=== PATIENT | female | born 1945 | race Caucasian/White ===

== ENCOUNTER 2019-01-06 09:16 | Observation (INO) | payer OTHER ==
--- OUTSIDE RECORDS SUMMARY | 2019-01-06 09:17 | XMS REPORT | Clinical Summary ---
:1945 Author Organization [facility] Address [address] [place] [address] Care Team Providers Name Role Phone Margaret Mcnamara Primary Care Provider Allergies No Known Allergies Medications Medication Sig Dispensed Refills Start Date End Date Status valsartan-hydrochlorot Take 1 tablet 90 tablet 3 03/21/2016 Active hiazide (DIOVAN-HCT) by mouth 320-25 mg per daily. tabletIndications: Essential hypertension letrozole (FEMARA) 2.5 Take by mouth 0 Active mg chemo tablet daily. montelukast sodium Take by mouth. 0 Active (MONTELUKAST ORAL) rivaroxaban (XARELTO) Take 10 mg by 0 Active 10 mg tablet mouth daily. metoprolol tartrate Take 25 mg by 0 Active (LOPRESSOR) 25 mg mouth 2 (two) tablet times a day. acetaminophen Insert 650 mg 0 Active (TYLENOL) 650 MG into the suppository rectum every 4 (four) hours as needed for mild pain. mirabegron (MYRBETRIQ) Take 50 mg by 0 Active 50 mg tablet extended mouth daily. release 24 hr ergocalciferol, Take by mouth. 0 Active vitamin D2, (ERGOCAL ORAL) cholecalciferol, Take by mouth. 0 Active vitamin D3, (VITAMIN D3) 5,000 unit tablet coenzyme Q10 200 mg Take 200 mg by 0 Active capsule mouth daily. magnesium oxide Take 400 mg by 0 Active (MAG-OX) 400 mg (241.3 mouth daily. mg magnesium) tablet rysw-kmyn-cgg-yuc-adrian- Take by mouth. 0 Active sona-hor [id number] mg tablet CANNABIDIOL, CBD, Take by mouth. 0 Active EXTRACT ORAL metoprolol tartrate Take 1 tablet 180 tablet 0 04/11/2017 04/11/2018 (LOPRESSOR) 25 mg (25 mg total) tablet by mouth 2 (two) times a day. Active Problems Problem Noted Date History of pulmonary embolus (PE) 09/18/2018 Chest pain 09/18/2018 Encounters Date Type Specialty Care Team Description 09/18/2018 Office Visit Cardiology Kirill Winston MD Chest pain, unspecified type (Primary Dx); History of pulmonary embolus (PE) after 01/05/2018 Family History Medical History Relation Name Comments Cancer Father Hyperlipidemia Mother Stroke Mother Relation Name Status Comments Father Mother Social History Tobacco Use Types Packs/Day Years Used Date Former Smoker Smokeless Tobacco: Never Used Comments: 40yrs ago Alcohol Use Drinks/Week oz/Week Comments No Alcohol Habits Answer Date Recorded How often do you have a drink containing alcohol? Never 09/18/2018 How many drinks containing alcohol do you have on a typical Not asked day when you are drinking? How often do you have six or more drinks on one occasion? Not asked Sex Assigned at Date Recorded Not on file Job Start Date Occupation Industry Not on file Not on file Not on file Travel History Travel Start Travel End No recent travel history available. Last Filed Vital Signs Vital Sign Reading Time Taken Comments Blood Pressure 149/67 09/18/2018 1:27 PM CDT Pulse 82 09/18/2018 1:27 PM CDT Temperature - - Respiratory Rate - - Oxygen Saturation - - Inhaled Oxygen Concentration - - Weight 144 kg (318 lb) 09/18/2018 1:27 PM CDT Height 165.1 cm (5' 5") 09/18/2018 1:27 PM CDT Body Mass Index 52.92 09/18/2018 1:27 PM CDT Plan of Treatment Date Type Specialty Care Team Description 03/19/2019 Office Visit Cardiology Kirill Winston MD [address] [address] Health Maintenance Due Date Last Done Comments BREAST CANCER SCREENING 02/10/1996 COLONOSCOPY SCREENING 02/10/1996 SHINGLES VACCINES (#1) 02/10/1996 65+ PNEUMOCOCCAL VACCINE (1 of 2 - PCV13) 2011 INFLUENZA VACCINE 12/06/2018 Procedures Procedure Name Priority Date/Time Associated Diagnosis Comments ECG 12-LEAD Routine 09/18/2018 12:17 PM Chest pain, Results for this CDT unspecified type procedure are in the results section. after 01/05/2018 Results ECG 12 lead (09/18/2018 12:17 PM CDT) Ventricular rate 80 [facility] Atrial rate 80 [facility] NV interval 176 [facility] QRSD interval 92 [facility] QT interval 406 [facility] QTC interval 468 [facility] P axis 1 53 [facility] QRS axis 1 -3 [facility] T wave axis 61 [facility] EKG impression Normal sinus [facility] rhythm-Normal ECG-In automated comparison with ECG of 18-SEP-2018 12:17,-No significant change was found- Specimen Narrative Performed At Performing Organization Address City/State/Zipcode Phone Number [facility] [address] [place] [address] after 01/05/2018 Insurance Payer Benefit Plan / Subscriber ID Effective Dates Phone Address Type Group HUMANA MEDICARE HUMANA MEDICARE xxxxxxxxx 2018-Present PPO PPO/PFFS/ERS [facility] Advance Directives For more information, please contact: [phone] Type Date Recorded Patient 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
--- OUTSIDE RECORDS SUMMARY | 2019-01-06 09:18 | XMS REPORT | Clinical Summary ---
:1945 Author Organization [facility] Address [address] [place] [address] Care Team Providers Name Role Phone Bladimir Mcnamara Primary Care Provider Allergies Active Allergy Reactions Severity Noted Date Comments Medical Supply, Miscellaneous Rash Low 01/07/2016 Medications Medication Sig Dispensed Refills Start Date End Date Status metoprolol (LOPRESSOR) Take 50 mg by 0 Active 50 MG tablet mouth 2 (two) times daily. VALSARTAN (DIOVAN ORAL) Take by mouth. 0 Active RIVAROXABAN (XARELTO Take by mouth. 0 Active ORAL) omeprazole (PRILOSEC) 40 Take 40 mg by 0 Active MG capsule mouth 2 (two) times daily. CHOLECALCIFEROL, VITAMIN Take by mouth. 0 Active D3, (VITAMIN D3 ORAL) UBIDECARENONE (CO Q-10 Take by mouth 0 Active ORAL) daily . montelukast (SINGULAIR) Take 10 mg by 0 Active 10 mg tablet mouth nightly. Active Problems Problem Noted Date Invasive ductal carcinoma of breast, left 01/15/2016 Encounters Date Type Specialty Care Team Description 07/18/2018 Procedure visit Radiation Oncology Alexei Robbins MD 01/17/2018 Procedure visit Radiation Oncology Nii Hoffman MD after 01/05/2018 Social History Tobacco Use Types Packs/Day Years Used Date Former Smoker Smokeless Tobacco: Never Used Comments: quit smoking 25 yrs ago Alcohol Use Drinks/Week oz/Week Comments Yes occasionally Sex Assigned at Date Recorded Not on file Job Start Date Occupation Industry Not on file Not on file Not on file Travel History Travel Start Travel End No recent travel history available. Last Filed Vital Signs Not on file Plan of Treatment Not on file Results Not on fileafter 01/05/2018 Insurance Payer Benefit Plan / Group Subscriber ID Type Phone Address HUMANA - MEDICARE MGD HUMANA MEDICARE ADV xxxxxxxxx Maps Contracted CARE (Home) [place] [address] Advance Directives For more information, please contact:[address] [phone] Code Status Date Activated Date Inactivated Comments Full Code 01/15/2016 11:50 AM 01/16/2016 5:04 PM This code status was determined by: Patient Full Code 01/15/2016 6:41 AM 01/15/2016 11:50 AM This code status was determined by: Patient
[2019-01-06] MEDS ORDERED: NA CHLORIDE 0.9% 1,000 ML ONE (10:00)
[2019-01-06] MEDS ORDERED: ONDANSETRON 4 MG/2 ML VIAL ONE (10:00)
[2019-01-06] MEDS ORDERED: FENTANYL CITR 100 MCG/2 ML ONE (10:00)
[2019-01-06 10:30] LABS: Absolute Lymphocytes (CBC) 0.9 K/uL (0.7-4.9); Basophils % 0.5 % (0-1.3); Hematocrit 38.1 % (36.0-45.0); Lymphocytes % 7.5 % (15.3-44.8); MPV 9.5 fL (7.6-11.3); RBC Red Blood Cell Count 4.39 M/uL (3.86-4.86)
[2019-01-06 10:40] LABS: Protime INR 1.67
[2019-01-06 10:44] LABS: ALT/SGPT 27 U/L (12-78); AST/SGOT 15 U/L (15-37); Albumin 3.2 g/dL (3.4-5.0); Alkaline Phosphatase 99 U/L (45-117); BUN Blood Urea Nitrogen 14 mg/dL (7-18); Bicarbonate 28 mmol/L (21-32); Bilirubin Direct 0.1 mg/dL (0-0.2); Bilirubin Total 0.6 mg/dL (0.2-1.0); Glucose Level 261 mg/dL (74-106); Lipase 60 U/L (73-393); NT PRO-BNP 50 pg/mL (<125); Potassium 3.4 mmol/L (3.5-5.1); Protein, Total 7.4 g/dL (6.4-8.2); Sodium Level 139 mmol/L (136-145); Troponin (Emerg Dept Use Only) < 0.02 ng/mL (0.0-0.045)
--- NOTE | 2019-01-06 11:59 | RAD REPORT ---
EXAM DESCRIPTION: CT - Angio Aorta For Dissection - 01/06/2019 11:44 am CLINICAL HISTORY: . Chest and abd pain COMPARISON: CT chest 2010 TECHNIQUE: Computed tomography angiography of the chest, abdomen pelvis were obtained. 100 cc Isovue 370 was administered intravenously. Coronal and sagittal reconstruction were performed. MIP 3D reconstruction was performed All CT scans are performed using dose optimization technique as appropriate and may include automated exposure control or mA/KV adjustment according to patient size. FINDINGS: The opacification of the aorta is suboptimal. No gross aortic dissection seen. An aortic aneurysm is not displayed. The celiac, SMA and MARTHA are patent . A lung consolidation is not present. A pericardial effusion is not seen. A pleural effusion is not n oted. Left mastectomy . Right thyroid nodule without obvious change from prior exam Small hiatal hernia. Small duodenum diverticulum Fatty liver Spondylosis involves lumbar spine resulting spinal stenosis Spleen, pancreas adrenals kidneys demonstrate no significant abnormality. Small umbilical hernia. Cho lecystectomy The appendix is normal. There no evidence diverticulitis. IMPRESSION: No gross evidence of an aortic dissection.
--- NOTE | 2019-01-06 12:01 | RAD REPORT ---
EXAM DESCRIPTION: [facility] Single View01/06/2019 10:23 am CLINICAL HISTORY: Chest pain COMPARISON: 2010 FINDINGS: The lungs appear clear of acute infiltrate. The heart is normal size IMPRESSION: No acute abnormalities displayed
--- NOTE | 2019-01-06 12:15 | ER ---
Nurse's Notes [facility] Name: Alvina Vail Age: 73 yrs Sex: Female : 1945 Arrival Date: 01/06/2019 Time: 09:26 Bed 14 Private MD: Diagnosis: Low back pain;Obesity, unspecified;Chest pain, unspecified-thoracic Presentation: 01/06 09:26 Presenting complaint: EMS states: pt complaining of pain in the lower and middle back sg that radiates to around to the left hip and left side, reports pain is chronic but not normally this bad, has taken a tramadol and cyclobenzaprine for pain control [employer]. Transition of care: patient was not received from another setting of care. Onset of symptoms was January 06, 2019. Risk Assessment: Do you want to hurt yourself or someone else? Patient reports no desire to harm self or others. Initial Sepsis Screen: Does the patient meet any 2 criteria? No. Patient's initial sepsis screen is negative. Does the patient have a suspected source of infection? No. Patient's initial sepsis screen is negative. Care prior to arrival: None. Mechanism of Injury: No Mechanism of Injury. 09:26 Method Of Arrival: EMS: [facility] 09:26 Acuity: JAS 4 sg Historical: - Allergies: 09:46 No Known Allergies; sg - Home Meds: 09:46 letrozole 2.5 mg oral tab 1 tab once daily [Active]; montelukast oral 1 cmg oral 1 tab sg once daily [Active]; Xarelto Oral [Active]; triamcinolone acetonide Topical [Active]; magnesium oxide 400 mg Oral tab 400 mg daily [Active]; ergocalciferol (vitamin D2) 1.25 oral cap 1 cap once wkly [Active]; metoprolol tartrate 25 mg oral tab 1 tab 2 times per day [Active]; tramadol 50 mg Oral tab 1 tab [Active]; - PMHx: 09:46 Arthritis; Cancer, Breast; Hyperlipidemia; Hypertension; pulmonary enbolism; sg - PSHx: 09:46 Mastectomy, Left; Hysterectomy; Cholecystectomy; Tubal ligation; sg - Immunization history:: Adult Immunizations up to date. - Social history:: Smoking status: Patient/guardian denies using tobacco. - Ebola Screening: : Patient negative for fever greater than or equal to 101.5 degrees Fahrenheit, and additional compatible Ebola Virus Disease symptoms Patient denies exposure to infectious person Patient denies travel to an Ebola-affected area in the 21 days before illness onset No symptoms or risks identified at this time. - Family history:: not pertinent. Screenin:15 Abuse screen: Denies threats or abuse. Denies injuries from another. Nutritional sg screening: No deficits noted. Tuberculosis screening: No symptoms or risk factors identified. Never had TB. Fall Risk None identified. Assessment: 10:28 General: Appears in no apparent distress. well groomed, well developed, well nourished, sg Behavior is calm, cooperative, appropriate for age. Neuro: Vital Signs: 09:34 Pulse 88; Resp 18; Temp 97.6; Pulse Ox 96% on R/A; Pain 8/10; sg 09:46 BP 135 / 59; sg 13:48 BP 136 / 60; Pulse 88; Resp 17; Pulse Ox 99% on R/A; sg ED Course: 09:26 Patient arrived in ED. sg 09:27 Triage completed. sg 09:33 Anshu Masters, RN is Primary Nurse. sg 09:33 Arm band placed on. sg 09:38 Ryne Meng MD is Attending Physician. edouard 10:07 EKG done, by ED staff, reviewed by Ryne Meng MD. dh3 10:10 Missed attempt(s): 22 gauge in right forearm. Bleeding controlled, band aid applied, sg catheter tip intact. 10:20 Inserted saline lock: 24 gauge in right upper arm, using aseptic technique. Blood sg collected. 10:33 XRAY Chest (1 view) In Process Unspecified. EDMS 11:16 Radiology exam delayed due to IV insertion attempt and/or patient not having bq appropriate IV at this time. 11:45 CT completed. Patient tolerated procedure well. Patient moved back from CT. mw3 11:47 CT Aorta for Dissection In Process Unspecified. EDMS 12:13 Caleb Oneill MD is Hospitalizing Provider. edouard 12:27 Ramirez cath inserted, using sterile technique, 16 Fr., by sd, balloon inflated, to sg gravity drainage, urine specimen collected. returned hugo urine. Patient tolerated well. Administered Medications: 10:25 Drug: fentaNYL (PF) 25 mcg Route: IVP; Site: right antecubital; sg 11:00 Follow up: Response: No adverse reaction; Pain is decreased; RASS: Drowsy (-1) sg 10:25 Drug: Zofran 4 mg Route: IVP; Site: right antecubital; sg 11:21 Follow up: Response: No adverse reaction; Nausea is decreased sg 12:00 Drug: fentaNYL (PF) 25 mcg Route: IVP; Site: right antecubital; hb 13:00 Follow up: Response: No adverse reaction; Pain is decreased sg 12:00 Drug: NS 0.9% 500 ml Route: IV; Rate: bolus; Site: right antecubital; hb 12:10 Drug: NS 0.9% 1000 ml Route: IV; Rate: 125 ml/hr; Site: right antecubital; hb 13:20 Drug: Potassium Effervescent Tablet 25 mEq Route: PO; sg 13:45 Follow up: Response: No adverse reaction sg 13:20 Drug: Rocephin 1 grams Route: IV; Rate: per protocol; Site: right antecubital; sg 14:00 Follow up: Response: No adverse reaction; IV Status: Completed infusion sg Outcome: 12:14 Decision to Hospitalize by Provider. [facility] 14:33 Patient left the ED. sg Signatures: Dispatcher [employer] EDMS Anshu Masters RN RN sg Anderson, Corey, MD MD cha Quilty, Betty bq Baxter, Heather RN RODDY Moi, Tiffany 3 Xiomara Correa 3
--- NOTE | 2019-01-06 12:16 | EDPHYS ---
Physician Documentation [facility] Name: Alvina Vail Age: 73 yrs Sex: Female : 1945 Arrival Date: 01/06/2019 Time: 09:26 Bed 14 Private MD: TIRSO Physician Ryne Meng HPI: 01/06 09:52 This 73 yrs old Female presents to ER via EMS with complaints of Back Pain. edouard 09:52 The patient presents with pain that is acute, with no known mechanism of injury. The edouard symptoms are located in the low back, right scapular area, left low back and left mid back. Onset: The symptoms/episode began/occurred 4 day(s) ago. The pain radiates to the right scapular area, left low back and left mid back. Associated signs and symptoms: The patient has no apparent associated signs or symptoms. The problem was sustained from unknown cause. Modifying factors: The patient symptoms are alleviated by nothing, remaining still, the patient symptoms are aggravated by movement. Severity of symptoms: At their worst the symptoms were moderate, in the emergency department the symptoms are unchanged. The patient has not experienced similar symptoms in the past. Historical: - Allergies: 09:46 No Known Allergies; sg - Home Meds: 09:46 letrozole 2.5 mg oral tab 1 tab once daily [Active]; montelukast oral 1 cmg oral 1 tab sg once daily [Active]; Xarelto Oral [Active]; triamcinolone acetonide Topical [Active]; magnesium oxide 400 mg Oral tab 400 mg daily [Active]; ergocalciferol (vitamin D2) 1.25 oral cap 1 cap once wkly [Active]; metoprolol tartrate 25 mg oral tab 1 tab 2 times per day [Active]; tramadol 50 mg Oral tab 1 tab [Active]; - PMHx: 09:46 Arthritis; Cancer, Breast; Hyperlipidemia; Hypertension; pulmonary enbolism; sg - PSHx: 09:46 Mastectomy, Left; Hysterectomy; Cholecystectomy; Tubal ligation; sg - Immunization history:: Adult Immunizations up to date. - Social history:: Smoking status: Patient/guardian denies using tobacco. - Ebola Screening: : Patient negative for fever greater than or equal to 101.5 degrees Fahrenheit, and additional compatible Ebola Virus Disease symptoms Patient denies exposure to infectious person Patient denies travel to an Ebola-affected area in the 21 days before illness onset No symptoms or risks identified at this time. - Family history:: not pertinent. ROS: 09:52 Constitutional: Negative for fever, chills, and weight loss, Eyes: Negative for injury, edouard pain, redness, and discharge, ENT: Negative for injury, pain, and discharge, Neck: Negative for injury, pain, and swelling, Cardiovascular: Negative for chest pain, palpitations, and edema, Respiratory: Negative for shortness of breath, cough, wheezing, and pleuritic chest pain, Abdomen/GI: Negative for abdominal pain, nausea, vomiting, diarrhea, and constipation, : Negative for injury, bleeding, discharge, and swelling, Skin: Negative for injury, rash, and discoloration, Neuro: Negative for headache, weakness, numbness, tingling, and seizure, Psych: Negative for depression, anxiety, suicide ideation, homicidal ideation, and hallucinations, Allergy/Immunology: Negative for hives, rash, and allergies, Endocrine: Negative for neck swelling, polydipsia, polyuria, polyphagia, and marked weight changes, Hematologic/Lymphatic: Negative for swollen nodes, abnormal bleeding, and unusual bruising. 09:52 Back: Positive for decreased range of motion, pain at rest, pain with movement, of the right scapular area, left low back and left mid back. Exam: 09:52 Constitutional: This is a well developed, well nourished patient who is awake, alert, edouard and in no acute distress. Head/Face: Normocephalic, atraumatic. Eyes: Pupils equal round and reactive to light, extra-ocular motions intact. Lids and lashes normal. Conjunctiva and sclera are non-icteric and not injected. Cornea within normal limits. Periorbital areas with no swelling, redness, or edema. ENT: Nares patent. No nasal discharge, no septal abnormalities noted. Tympanic membranes are normal and external auditory canals are clear. Oropharynx with no redness, swelling, or masses, exudates, or evidence of obstruction, uvula midline. Mucous membranes moist. Neck: Trachea midline, no thyromegaly or masses palpated, and no cervical lymphadenopathy. Supple, full range of motion without nuchal rigidity, or vertebral point tenderness. No Meningismus. Chest/axilla: Normal chest wall appearance and motion. Nontender with no deformity. No lesions are appreciated. Cardiovascular: Regular rate and rhythm with a normal S1 and S2. No gallops, murmurs, or rubs. Normal PMI, no JVD. No pulse deficits. Respiratory: Lungs have equal breath sounds bilaterally, clear to auscultation and percussion. No rales, rhonchi or wheezes noted. No increased work of breathing, no retractions or nasal flaring. Abdomen/GI: Soft, non-tender, with normal bowel sounds. No distension or tympany. No guarding or rebound. No evidence of tenderness throughout. Skin: Warm, dry with normal turgor. Normal color with no rashes, no lesions, and no evidence of cellulitis. Neuro: Awake and alert, GCS 15, oriented to person, place, time, and situation. Cranial nerves II-XII grossly intact. Motor strength 5/5 in all extremities. Sensory grossly intact. Cerebellar exam normal. Normal gait. Psych: Awake, alert, with orientation to person, place and time. Behavior, mood, and affect are within normal limits. 09:52 Back: pain, that is mild, ROM is painful, normal spinal alignment noted, CVA tenderness, that is mild, that is moderate, is noted on the left, vertebral tenderness, is not appreciated, muscle spasm, is not present. Vital Signs: 09:34 Pulse 88; Resp 18; Temp 97.6; Pulse Ox 96% on R/A; Pain 8/10; sg 09:46 BP 135 / 59; sg 13:48 BP 136 / 60; Pulse 88; Resp 17; Pulse Ox 99% on R/A; sg MDM: 09:38 Patient medically screened. [facility] 09:55 Data reviewed: vital signs, nurses notes, lab test result(s), EKG, radiologic studies, [facility] CT scan, plain films. 01/06 09:52 Order name: Basic Metabolic Panel; Complete Time: 12:07 [facility] 01/06 09:52 Order name: CBC with Diff [facility] 01/06 09:52 Order name: LFT's; Complete Time: 12:07 [facility] 01/06 09:52 Order name: Magnesium; Complete Time: 12:07 [facility] 01/06 09:52 Order name: NT PRO-BNP; Complete Time: 12:07 [facility] 01/06 09:52 Order name: PT-INR; Complete Time: 12:07 [facility] 01/06 09:52 Order name: Troponin (emerg Dept Use Only); Complete Time: 12:07 [facility] 01/06 09:52 Order name: Lipase; Complete Time: 12:07 [facility] 01/06 09:52 Order name: Urine Culture [facility] 01/06 09:52 Order name: Blood Culture Adult (2) [facility] 01/06 09:52 Order name: Lactate; Complete Time: 12:07 [facility] 01/06 09:52 Order name: Procalcitonin; Complete Time: 12:07 [facility] 01/06 12:29 Order name: CBC with Automated Diff [facility] 01/06 12:29 Order name: Troponin I [facility] 01/06 09:52 Order name: XRAY Chest (1 view); Complete Time: 12:09 [facility] 01/06 09:52 Order name: EKG; Complete Time: 09:55 [facility] 01/06 09:52 Order name: CT Aorta for Dissection; Complete Time: 12:07 [facility] 01/06 12:29 Order name: CONS Pharmacy Consult [facility] 01/06 12:29 Order name: Heart Healthy [facility] 01/06 12:30 Order name: Troponin I [facility] 01/06 12:30 Order name: Troponin I [facility] 01/06 12:35 Order name: Urine Dipstick--Ancillary (enter results) 01/06 13:40 Order name: Urine Dipstick-Ancillary [facility] 01/06 09:52 Order name: Cardiac monitoring; Complete Time: 09:54 [facility] 01/06 09:52 Order name: EKG - Nurse/Tech; Complete Time: 10:10 [facility] 01/06 09:52 Order name: IV Saline Lock; Complete Time: 12:45 [facility] 01/06 09:52 Order name: Labs collected and sent; Complete Time: 12:45 [facility] 01/06 09:52 Order name: O2 Per Protocol; Complete Time: 10:10 [facility] 01/06 09:52 Order name: O2 Sat Monitoring; Complete Time: 10:10 [facility] 01/06 09:52 Order name: Urine Dipstick-Ancillary (obtain specimen); Complete Time: 12:45 [facility] 01/06 09:52 Order name: Ramirez; Complete Time: 12:25 [facility] 01/06 12:29 Order name: EKG Electrocardiogram EDND Administered Medications: 10:25 Drug: fentaNYL (PF) 25 mcg Route: IVP; Site: right antecubital; sg 11:00 Follow up: Response: No adverse reaction; Pain is decreased; RASS: Drowsy (-1) sg 10:25 Drug: Zofran 4 mg Route: IVP; Site: right antecubital; sg 11:21 Follow up: Response: No adverse reaction; Nausea is decreased sg 12:00 Drug: fentaNYL (PF) 25 mcg Route: IVP; Site: right antecubital; hb 13:00 Follow up: Response: No adverse reaction; Pain is decreased sg 12:00 Drug: NS 0.9% 500 ml Route: IV; Rate: bolus; Site: right antecubital; hb 12:10 Drug: NS 0.9% 1000 ml Route: IV; Rate: 125 ml/hr; Site: right antecubital; hb 13:20 Drug: Potassium Effervescent Tablet 25 mEq Route: PO; sg 13:45 Follow up: Response: No adverse reaction sg 13:20 Drug: Rocephin 1 grams Route: IV; Rate: per protocol; Site: right antecubital; sg 14:00 Follow up: Response: No adverse reaction; IV Status: Completed infusion sg Disposition: 01/06/19 12:14 Hospitalization ordered by Caleb Oneill for Inpatient Admission. Preliminary diagnosis are Low back pain, Obesity, unspecified, Chest pain, unspecified - thoracic. - Bed requested for Telemetry/MedSurg (Inpatient). - Status is Inpatient Admission. sg - Condition is Fair. - Problem is new. - Symptoms have improved. UTI on Admission? Yes Signatures: Dispatcher [employer] EDMS Anshu Masters RN RN Ryne Meng MD MD cha Baxter, Heather, RN RN Nika Ureña Corrections: (The following items were deleted from the chart) 13:13 12:14 Hospitalization Ordered by Caleb Oneill MD for Inpatient Admission. selene Preliminary diagnosis is Low back pain; Obesity, unspecified; Chest pain, unspecified - thoracic. Bed requested for Telemetry/MedSurg (Inpatient). Status is Inpatient Admission. Condition is Fair. Problem is new. Symptoms have improved. UTI on Admission? Yes. edouard 14:33 13:13 01/06/2019 12:14 Hospitalization Ordered by Caleb Oneill MD for Inpatient sg Admission. Preliminary diagnosis is Low back pain; Obesity, unspecified; Chest pain, unspecified - thoracic. Bed requested for Telemetry/MedSurg (Inpatient). Status is Inpatient Admission. Condition is Fair. Problem is new. Symptoms have improved. UTI on Admission? Yes. eb
[2019-01-06] MEDS ORDERED: ALBUTEROL 2.5 MG/3 ML NEB SOL NEB PRN (12:23)
[2019-01-06] MEDS ORDERED: ONDANSETRON 4 MG/2 ML VIAL IV PRN (12:23)
[2019-01-06] MEDS ORDERED: MORPHINE 2 MG/ML SYR IV PRN (12:23)
[2019-01-06] MEDS: ARFORMOTEROL TARTRATE 15 MCG/2 ML VIAL.NEB NEB SCH ×2 (12:27→20:10)
[2019-01-06] MEDS ORDERED: POTASSIUM 25 MEQ EFFERV TAB ONE (12:47)
[2019-01-06] MEDS ORDERED: CEFTRIAXONE/SWI 1gm 1 GM/10 ML SYR ONE (12:47)
[2019-01-06 13:37] LABS: Urine Blood TRACE (NEG); Urine Glucose TRACE (NEG); Urine Protein NEGATIVE (NEG); Urine pH 6.5 (5.0-7.0)
--- NOTE | 2019-01-06 14:32 | P.HP ---
Certification for Inpatient With expected LOS: <2 Midnights Practitioner: I am a practitioner with admitting privileges, knowledge of patient current condition, hospital course, and medical plan of care. Services: Services provided to patient in accordance with Admission requirements found in Title 42 Section 412.3 of the Code of Federal Regulations Patient History Date of Service: 01/06/19 (Hospitalist) Reason for admission: Joint pains History of Present Illness: Patient is 73 years of age a very anxious lady history of thrombo embolism history of breast cancer admitted with joint pains involving both David since last apparently she was treated with ciprofloxacin for an abdominal infection by a physician assistant account executive no prior history of rheumatoid arthritis she has had some chronic problems with her lower extremities very apprehensive anxious also complains of some discomfort in his shoulders in the back the patient is compliant with her anticoagulants denies any shortness of breath Allergies No Known Allergies Allergy (Verified 07/01/16 11:04) Home Medications: Acetaminophen [Tylenol Arthritis] 650 mg PO QID 07/01/16 Cholecalciferol (Vitamin D3) [Vitamin D3] 5,000 unit PO DAILY 07/01/16 Cranberry Fruit Extract [Cranberry] 500 mg PO BID 07/01/16 Letrozole [Femara*] 2.5 mg PO DAILY 07/01/16 Magnesium Oxide [Magnesium] 400 mg PO DAILY 07/01/16 Metoprolol Tartrate [Lopressor*] 25 mg PO BID 07/01/16 Montelukast Sodium 10 mg PO DAILY 07/01/16 Omeprazole [Prilosec] 40 mg PO BID 07/01/16 Rivaroxaban [Xarelto*] 20 mg PO DAILY 07/01/16 Tramadol HCl [Ultram] 50 mg PO Q6HP PRN 07/01/16 Ubidecarenone/Vitamin E Mixed [Alu54-Ucs E 100 mg-10 Unit Sfg] 1 tab PO DAILY Valsartan/Hydrochlorothiazide [Valsartan-Hctz 320-25 mg Tab] 0.5 tab PO DAILY WITH BREAKFAST 07/01/16 - Past Medical/Surgical History -: Asthma -: Breast cancer -: Thromboembolism -: Left mastectomy -: Cholecystectomy -: Hysterectomy Review of Systems Unremarkable Physical Examination - Physical Exam General: Alert, In no apparent distress, Oriented x3 Neck: Supple Respiratory: Clear to auscultation bilaterally Cardiovascular: No edema, Regular rate/rhythm, Normal S1 S2 Gastrointestinal: Normal bowel sounds, Soft and benign Musculoskeletal: Other (No obvious swelling) Integumentary: No rashes (Of for joints in her hand) - Studies Laboratory Data (last 24 hrs) 01/06/19 10:10: PT 19.3 H, INR 1.67 01/06/19 10:10: WBC 11.5 H, Hgb 12.6, Hct 38.1, Plt Count 229 01/06/19 10:10: Sodium 139, Potassium 3.4 L, BUN 14, Creatinine 0.71, Glucose 261 H, Magnesium 2.0, Total Bilirubin 0.6, AST 15, ALT 27, Alkaline Phosphatase 99, Lipase 60 L Assessment and Plan - Problems (Diagnosis) (1) Arthralgia Current Visit: Yes Status: Acute Plan: Patient is 73 years of age developed sudden onset of planes in her hands and shoulders abated to her Cipro patient is fully anti coagulated chest x-ray is negative CT dissection is also negative continue to observe the started on her on some steroids possible discharge tomorrow Qualifiers: Joint pain location: hand - Advance Directives Does patient have a Living Will: Yes Does patient have a Durable POA for Healthcare: Yes
[2019-01-06] MEDS: IPRATROPIUM BROM 0.5MG/2.5ML NEB SCH ×2 (14:36→20:10)
[2019-01-06] MEDS: predniSONE 20 MG TAB PO SCH ×2 (15:26→20:56)
[2019-01-06 16:40] VITALS: BMI 49.9
[2019-01-06 17:27] LABS: Rheumatoid Factor NEG (NEG)
[2019-01-06] MEDS: HYDROCODONE/APAP 5/325 MG TAB PO PRN (23:00)
[2019-01-07] MEDS: IPRATROPIUM BROM 0.5MG/2.5ML NEB SCH ×4 (01:50→20:00)
[2019-01-07 06:12] LABS: Absolute Lymphocytes (CBC) 0.7 K/uL (0.7-4.9); Basophils % 0.3 % (0-1.3); Lymphocytes % 9.5 % (15.3-44.8); MPV 9.9 fL (7.6-11.3); RBC Red Blood Cell Count 4.12 M/uL (3.86-4.86)
[2019-01-07] MEDS: ARFORMOTEROL TARTRATE 15 MCG/2 ML VIAL.NEB NEB SCH ×2 (08:00→20:00)
[2019-01-07 08:26] LABS: Blood Morphology Comment NOT SEEN (NOT SEEN); Platelet Estimate ADEQ; Urine White Blood Cell Casts OK
[2019-01-07] MEDS: predniSONE 20 MG TAB PO SCH ×2 (08:32→20:36)
[2019-01-07] MEDS: HYDROCODONE/APAP 5/325 MG TAB PO PRN ×2 (08:34→20:37)
--- NOTE | 2019-01-07 08:38 | EKG ---
Test Date: 2019-01-06 Test Time: 10:05:13 Industrial Ecology Technician: ARGENIS MEASUREMENT RESULTS: Intervals: Rate: 85 MO: 172 QRSD: 98 QT: 394 QTc: 468 Hawley: P: 49 MO: 172 QRS: 17 T: 48 INTERPRETIVE STATEMENTS: Normal sinus rhythm Normal ECG Compared to ECG 09/27/2010 13:00:53 No significant changes Electronically Signed On 01-07-19 08:36:14 CDT by Ulysses Kebede
--- NOTE | 2019-01-07 09:44 | P.DS ---
Admission Date: 01/06/19 Discharge Date: 01/07/19 Disposition: ROUTINE DISCHARGE Discharge Condition: GOOD Reason for Admission: Joint pains - Problems (1) Arthralgia Current Visit: Yes Status: Acute Qualifiers: Joint pain location: hand Laterality: unspecified laterality Qualified Code(s): M25.549 - Pain in joints of unspecified hand Brief History of Present Illness: Patient is 73 years of age a very anxious lady history of thrombo embolism history of breast cancer admitted with joint pains involving both David since last apparently she was treated with ciprofloxacin for an abdominal infection by a physician facilities maintenance assistant no prior history of rheumatoid arthritis she has had some chronic problems with her lower extremities very apprehensive anxious also complains of some discomfort in his shoulders in the back the patient is compliant with her anticoagulants denies any shortness of breath Hospital Course: Patient is 73 years of age very apprehensive lady admitted with multiple joint pains workup was unremarkable rheumatoid factor negative ESR was mildly elevated probably side effect of ciprofloxacin I have advised patient to stop the medication low-dose prednisone to follow up with primary care in 1 or 2 weeks no evidence of sepsis pro calcitonin level negative urinalysis negative Vital Signs/Physical Exam: Temp Pulse Resp BP Pulse Ox 97.0 F 81 17 131/70 95 01/07/19 08:00 01/07/19 08:00 01/07/19 08:34 01/07/19 08:00 01/07/19 08:34 Laboratory Data at Discharge: WBC 7.6 K/uL (4.3-10.9) D 01/07/19 05:18 Hgb 11.9 g/dL (12.0-15.0) L 01/07/19 05:18 Hct 36.0 % (36.0-45.0) 01/07/19 05:18 Plt Count 216 K/uL (152-406) 01/07/19 05:18 PT 19.3 SECONDS (9.5-12.5) H 01/06/19 10:10 INR 1.67 01/06/19 10:10 Sodium 139 mmol/L (136-145) 01/06/19 10:10 Potassium 3.4 mmol/L (3.5-5.1) L 01/06/19 10:10 BUN 14 mg/dL (7-18) 01/06/19 10:10 Creatinine 0.71 mg/dL (0.55-1.3) 01/06/19 10:10 Glucose 261 mg/dL (74-106) H 01/06/19 10:10 Magnesium 2.0 mg/dL (1.8-2.4) 01/06/19 10:10 Total Bilirubin 0.6 mg/dL (0.2-1.0) 01/06/19 10:10 AST 15 U/L (15-37) 01/06/19 10:10 ALT 27 U/L (12-78) 01/06/19 10:10 Alkaline Phosphatase 99 U/L (45-117) 01/06/19 10:10 Troponin I < 0.02 ng/mL (0.0-0.045) 01/06/19 20:11 Lipase 60 U/L (73-393) L 01/06/19 10:10 Home Medications: Acetaminophen [Tylenol 8 Hour] 650 mg PO BID 01/06/19 Cholecalciferol (Vitamin D3) [Vitamin D3] 5,000 unit PO DAILY 01/06/19 Cyclobenzaprine [Flexeril*] 10 mg PO DAILY 01/06/19 Hyoscyamine Sulfate [Levsin TAB*] 0.125 mg PO PRN PRN 01/06/19 L.acidoph,Paracasei, B.lactis [Probiotic] 1 cap PO DAILY 01/06/19 Letrozole [Femara*] 2.5 mg PO BEDTIME 01/06/19 Magnesium Oxide [Magnesium] 400 mg PO BEDTIME 01/06/19 Metoprolol Tartrate [Lopressor*] 25 mg PO BID 01/06/19 Montelukast Sodium [Singulair] 10 mg PO BEDTIME 01/06/19 Rivaroxaban [Xarelto*] 10 mg PO DAILY 01/06/19 Triamcinolone 0.1% Oint [Kenalog 0.1% Ointment*] 1 appl TOP Q4HP PRN 01/06/19 Turmeric/Turmeric Root Extract [Turmeric 500 mg Capsule] 1,000 mg PO BID Ubidecarenone [Co Q-10] 300 mg PO BEDTIME 01/06/19 Prednisone [Sterapred Ds] 10 mg PO BID #14 tab.ds.pk 01/07/19 New Medications: Prednisone [Sterapred Ds] 10 mg PO BID #14 tab.ds.pk Patient Discharge Instructions: With the primary care an oncology Diet: Regular Activity: Ad janene
[2019-01-08] MEDS ORDERED: HYOSCYAMINE SULF 0.125 MG TAB PO PRN (00:27)
[2019-01-08] MEDS: LETROZOLE 2.5 MG TAB PO SCH ×2 (01:00→21:00)
[2019-01-08] MEDS: IPRATROPIUM BROM 0.5MG/2.5ML NEB SCH ×4 (02:00→14:00)
[2019-01-08] MEDS: ARFORMOTEROL TARTRATE 15 MCG/2 ML VIAL.NEB NEB SCH ×3 (06:47→19:45)
[2019-01-08] MEDS: predniSONE 20 MG TAB PO SCH ×2 (08:23→21:46)
[2019-01-08] MEDS: METOPROLOL TAR 25 MG TAB PO SCH ×2 (08:23→21:47)
[2019-01-08] MEDS: VITAMIN D 5,000 UNIT CAP PO SCH (08:24)
[2019-01-08] MEDS: RIVAROXABAN 10 MG TABLET PO SCH (08:24)
[2019-01-08] MEDS: HOME MED 1 EA UNK (L.Acidoph,Paracasei, B.Lactis [Probiotic] 1 CAP) PO SCH (09:00)
[2019-01-08 10:20] LABS: Potassium 4.1 mmol/L (3.5-5.1)
[2019-01-08] MEDS ORDERED: D50W 25 GM/50 ML SYRINGE IV PRN (10:45)
[2019-01-08] MEDS ORDERED: GLUCAGON 1 MG/VIAL IM PRN (10:45)
[2019-01-08] MEDS: INSULIN -REGULAR HUMAN 50 UNIT/0.5 ML ML SQ SCH ×3 (11:30→21:49)
--- NOTE | 2019-01-08 14:18 | PN ---
Date of Progress Note: 01/08/2019 Subjective: Patient seen and examined. Chart reviewed and case discussed with RN. Patient is still having significant amount of back pain, not very mobile. Did work with Physical Therapy yesterday. Medications: List reviewed. Code Status: Full. Physical Examination: Vital Signs: Temperature 96.5, heart rate 73, blood pressure 107/51, respirations 18, O2 96% on room air. General: Awake, alert, oriented x3. Elderly female, morbidly obese, in some mild distress due to pa in. CV: S1, S2. Peripheral pulses present. Regular rate and rhythm. Gastrointestinal: Abdomen is soft, nontender, nondistended. Positive bowel sounds. No guarding or rigidity. Extremities: No clubbing, cyanosis. Patient has peripheral edema. Skin: Patient has chronic venous stasis changes. Neuro: Patient has overall generalized weakness. No focal neurological deficit. Speech is normal. Laboratory Data: Sodium 140, potassium 4.1, chloride 103, CO2 of 30, BUN 16, creatinine 0.74, glucos e 344, calcium 9.2. Rheumatoid factor is negative. Blood cultures, no growth to date. Urine cultur e, mixed enrique. Assessment: A 73-year-old female with; 1.Intractable low back pain. Patient does have osteoarthritis and back pain due to lumbar degenerat shannen changes. There are no acute fractures on the CT scan of the thoracic and lumbar spine. Patient does have L3-L4 spinal stenosis and L4-L5 borderline spinal stenosis. We will continue with pain med ications. Continue with physical therapy and occupational therapy. 2.Morbid obesity. 3.Chest pain. Acute coronary syndrome ruled out. CT dissection did not show any acute aortic disse ction. 4.Fatty liver disease. 5.History of breast cancer, status post left mastectomy. 6.Incidental finding of right thyroid nodule. No change from prior exam. 7.Hypokalemia, replaced. 8.History of intermittent asthma. We will continue with albuterol as needed. 9.History of thromboembolism. Patient is anticoagulated with Xarelto. Plan: Inpatient rehab referral. /SHEEBA Voice ID: [id number] Report ID: [id number]
[2019-01-08] MEDS ORDERED: IPRATROPIUM BROM 0.5MG/2.5ML NEB PRN (15:18)
[2019-01-08] MEDS ORDERED: UBIDECARENONE 300 MG PO SCH (21:00)
[2019-01-08] MEDS ORDERED: MONTELUKAST 10 MG TAB PO SCH (21:00)
[2019-01-08] MEDS ORDERED: MAGNESIUM OXIDE 400 MG TAB PO SCH (21:00)
[2019-01-08] MEDS: HYDROCODONE/APAP 5/325 MG TAB PO PRN (22:52)
[2019-01-09 06:03] LABS: Absolute Lymphocytes (CBC) 0.7 K/uL (0.7-4.9); Basophils % 0.2 % (0-1.3); Hematocrit 33.5 % (36.0-45.0); Lymphocytes % 14.3 % (15.3-44.8); MPV 9.8 fL (7.6-11.3); RBC Red Blood Cell Count 3.83 M/uL (3.86-4.86)
[2019-01-09 06:21] LABS: Albumin 2.7 g/dL (3.4-5.0); Bilirubin Total 0.2 mg/dL (0.2-1.0); Potassium 4.3 mmol/L (3.5-5.1); Protein, Total 6.6 g/dL (6.4-8.2)
[2019-01-09] MEDS: ARFORMOTEROL TARTRATE 15 MCG/2 ML VIAL.NEB NEB SCH (06:30)
[2019-01-09 06:59] VITALS: O2SAT 95
[2019-01-09] MEDS: INSULIN -REGULAR HUMAN 50 UNIT/0.5 ML ML SQ SCH ×2 (08:36→12:59)
[2019-01-09] MEDS: predniSONE 20 MG TAB PO SCH (08:37)
[2019-01-09] MEDS: RIVAROXABAN 10 MG TABLET PO SCH (08:37)
[2019-01-09] MEDS: METOPROLOL TAR 25 MG TAB PO SCH (08:37)
[2019-01-09] MEDS: VITAMIN D 5,000 UNIT CAP PO SCH (08:37)
[2019-01-09] MEDS: HOME MED 1 EA UNK (L.Acidoph,Paracasei, B.Lactis [Probiotic] 1 CAP) PO SCH (08:42)
[2019-01-09 12:17] VITALS: BP 140/68; TEMP 97.2
[2019-01-09] MEDS ORDERED: RIVAROXABAN 10 MG TABLET PO SCH (21:00)
[2019-01-09] MEDS ORDERED: LETROZOLE 2.5 MG TABLETS PO SCH (21:00)
[2019-01-10] MEDS ORDERED: LACTOBACILLUS/ACIDOPHILUS TAB PO SCH (09:00)
--- NOTE | 2019-01-10 11:29 | DS ---
Date of Discharge: 01/09/2019 Consultants: None. Procedures: None. Admitting Diagnosis: Arthralgia. Discharge Diagnoses: 1.Intractable low back pain secondary to degenerative joint disease. 2.Morbid obesity. 3.Chest pain, acute coronary syndrome ruled out. 4.Fatty liver disease. 5.History of breast cancer, status post left mastectomy. 6.Incidental finding of right thyroid nodule. No change from prior exam. 7.Hypokalemia, corrected. 8.History of intermittent asthma. 9.History of thromboembolism, on Xarelto. 10.Recently diagnosed diabetes mellitus type 2, [id number], with hyperglycemia. Hospital Course: Patient is a morbidly obese 73-year-old female with history of thromboembolism; nadir ast cancer, status post mastectomy, comes in with joint pain. Patient apparently had reaction to cip rofloxacin and had pain in her lower extremities, shoulders, and back. She also complained of some c hest discomfort. Cardiac enzymes were obtained, which were negative. Lactate and procalcitonin were also negative. There was no sign of infection. Patient did have elevated blood glucose levels and apparently states now that she has been told that she is a new newly diagnosed diabetic. Patient's w evelin blood cell count improved. She did have an elevated ESR level. CT scan was done to rule out ao rtic dissection that was negative. Addendum was reported by the radiologist to look for lumbar and t horacic spine abnormalities. There was some degenerative disk disease and bone change throughout the thoracic and lumbar spine with L3-4 spinal stenosis and L4-L5 borderline spinal stenosis. There wer e no compression fractures. Patient's pain improved with IV morphine. She was then able to tolerate her pain with just oral narcotics. She started working with Physical Therapy and Occupational Thera py. She was referred to inpatient rehab. The patient was able to ambulate minimal of 60 feet. She did well. She was initially discharged on the , however, was unable to be discharged due to aakash nued pain. After further evaluation and improvement in her symptoms and with ability to ambulate fur ther using her Rollator, she was discharged home, pending inpatient rehab referral. Patient will be sent home in a stable condition. Activities: Ambulate with Rollator. Medications: As per medication reconciliation list. Followup: Follow up with primary care physician in 1-2 weeks. Establish care with Neurology to addr ess chronic back pain in the next couple of weeks. Return to ER for worsening condition. Physical Examination: General: Awake, alert, oriented x3. Elderly female, obese. CV: S1, S2. No murmurs. Respiratory: Moving air well bilaterally. No wheezing. Gastrointestinal: Abdomen is soft, nontender, nondistended. Positive bowel sounds. Extremities: No clubbing, cyanosis, or edema. Neurologic: Nonfocal. Patient has generalized weakness. /SHEEBA Voice ID: [id number] Report ID: [id number]
== END 2019-01-09 15:25 | disposition home or self-care (01) ==
LOC: SUPCPDRO 09:16 → ER 09:16 → INTOOBSV 12:39 → ERHOLD 12:39 → OBSVTOIN 12:39 → 2ND 13:50 → INTOOBSV 01-08 12:59 → OBSVTOIN 01-08 12:59
PROVIDERS: ADMIT Internal Medicine Sleep Medicine; ATTEND Family Medicine
PROC: 0T9B70Z Drainage of Bladder with Drainage Device, Via Natural or Artificial Opening (ICD-10-PCS; principal; 2019-01-06)
DX: M47.896 Other spondylosis, lumbar region (principal); M25.542 Pain in joints of left hand; M25.541 Pain in joints of right hand; M25.512 Pain in left shoulder; M25.511 Pain in right shoulder; Z85.3 Personal history of malignant neoplasm of breast; M54.5 Low back pain; E66.01 Morbid (severe) obesity due to excess calories; Z68.42 Body mass index [BMI] 45.0-49.9, adult; K76.0 Fatty (change of) liver, not elsewhere classified; E87.6 Hypokalemia; J45.20 Mild intermittent asthma, uncomplicated; Z86.718 Personal history of other venous thrombosis and embolism; R07.9 Chest pain, unspecified; E11.65 Type 2 diabetes mellitus with hyperglycemia
CPT/HCPCS: 96365; 93005; 87040 ×2; 87088; 85025 ×3; 87086; 80048 ×2; 36415 ×3; 83735; 86430; 85610; 82962 ×5; 80076; 83605; 85652; 81003; 84484 ×3; 83690; 80053; 84145; 86038; 83880; 71275; 74175; 71045; 97110; 97112; 97116 ×5; 97161; 97530 ×3; 94640; 94760 ×7; 51702 ×2; 96375; 99285; Q9967; J3010; J2270; J7605 ×6; J0696; J7030; J2405 ×2; G0378 ×2; J7512

== ENCOUNTER 2023-04-12 08:26 | Day surgery (SDC) | payer OTHER ==
[2023-04-10 10:09] LABS: Absolute Lymphocytes (CBC) 1.6 K/uL (0.7-4.9); Hematocrit 36.5 % (36.0-45.0); Lymphocytes % 19.1 % (15.3-44.8); MCV 87.2 fL (80-100); MPV 8.5 fL (7.6-11.3); Platelets 259 thou/uL (152-406); RBC Red Blood Cell Count 4.18 M/uL (3.86-4.86)
[2023-04-10 10:25] LABS: Potassium 3.7 mEq/L (3.5-5.1); Protime INR 0.96
--- NOTE | 2023-04-11 13:30 | EKG ---
Test Date: 2023-04-10 Test Time: 10:54:47 Cash Controller: ANA LAURA MEASUREMENT RESULTS: Intervals: Rate: 74 ME: 194 QRSD: 94 QT: 414 QTc: 459 Bliss: P: 48 ME: 194 QRS: 43 T: 61 INTERPRETIVE STATEMENTS: Normal sinus rhythm Normal ECG Compared to ECG 01/06/2019 10:05:13 No significant changes Electronically Signed On 04-11-23 13:27:10 [employer]ILROAD CAR CHECKER by Don Tavares
[2023-04-12] MEDS ORDERED: NA CHLORIDE 0.9% 1,000 ML ONE (08:57)
[2023-04-12] MEDS ORDERED: LIDOCAINE 1% MPF 5 ML VIAL ONE (10:43)
[2023-04-12] MEDS ORDERED: propofoL 200 MG/20 ML VIAL IV ONE ×2 (10:43→10:44)
[2023-04-12 13:02] VITALS: BP 105/54; TEMP 97.1; O2SAT 98
== END 2023-04-12 12:20 | disposition home or self-care (01) ==
LOC: OR 08:26
PROVIDERS: ATTEND Internal Medicine Gastroenterology
PROC: 0DB68ZX Excision of Stomach, Via Natural or Artificial Opening Endoscopic, Diagnostic (ICD-10-PCS; 2023-04-12)
PROC: 0DJD8ZZ Inspection of Lower Intestinal Tract, Via Natural or Artificial Opening Endoscopic (ICD-10-PCS; 2023-04-12)
PROC: 0DB68ZX Excision of Stomach, Via Natural or Artificial Opening Endoscopic, Diagnostic (ICD-10-PCS; principal; 2023-04-12 10:30)
PROC: 0DB78ZX Excision of Stomach, Pylorus, Via Natural or Artificial Opening Endoscopic, Diagnostic (ICD-10-PCS; 2023-04-12 10:30)
DX: R13.10 Dysphagia, unspecified (principal); Z86.010 Personal history of colon polyps; R14.2 Eructation; R09.89 Other specified symptoms and signs involving the circulatory and respiratory systems; E11.9 Type 2 diabetes mellitus without complications; R12 Heartburn; K22.2 Esophageal obstruction; K44.9 Diaphragmatic hernia without obstruction or gangrene; K31.7 Polyp of stomach and duodenum; K29.50 Unspecified chronic gastritis without bleeding; K57.30 Diverticulosis of large intestine without perforation or abscess without bleeding; K64.8 Other hemorrhoids; K64.4 Residual hemorrhoidal skin tags; K21.9 Gastro-esophageal reflux disease without esophagitis; I10 Essential (primary) hypertension; Z85.3 Personal history of malignant neoplasm of breast
CPT/HCPCS: 93005; 85025; 80048; 36415; 88312; 85610; 82947; 88305; 85730; 43239; 43248; J2704 ×2; J2001; J7030; C1769; G0105

== ENCOUNTER 2023-12-12 13:50 | Emergency (ER) | payer OTHER ==
--- NOTE | 2023-12-12 15:30 | RAD REPORT ---
EXAM DESCRIPTION: RAD - Shoulder Right 2 View - 12/12/2023 3:22 pm CLINICAL HISTORY: pain COMPARISON: <Comparisons> FINDINGS/IMPRESSION: No acute fracture. No malalignment. At least mild right AC joint and right rukhsana ohumeral joint degenerative changes.
--- NOTE | 2023-12-12 15:31 | RAD REPORT ---
EXAM DESCRIPTION: RAD - Lumbar Spine 3 Views - 12/12/2023 3:22 pm CLINICAL HISTORY: pain COMPARISON: Sacrum And Coccyx dated 12/12/2023 FINDINGS/IMPRESSION: No acute fracture. Levoconvex curvature centered at L2. Severe disc height loss at L2-3 and L3-4 with endplate sclerosis and spurring. . Mild disc height loss at L1-2 and L4-5. Marii gical clips in right upper quadrant.
--- NOTE | 2023-12-12 15:32 | RAD REPORT ---
EXAM DESCRIPTION: RAD - Sacrum And Coccyx - 12/12/2023 3:22 pm CLINICAL HISTORY: pain COMPARISON: No comparisons FINDINGS/IMPRESSION: Possible mildly displaced fracture at the coccyx which is only well seen on the lateral view. This could be confirmed with CT. The frontal view is largely obscured by bowel content s.
[2023-12-12] MEDS ORDERED: HYDROCODONE/APAP 5/325 MG TAB ONE (15:51)
[2023-12-12] MEDS ORDERED: KETOROLAC 30 MG/ML INJ ONE (18:21)
--- NOTE | 2023-12-12 18:24 | RAD REPORT ---
EXAM DESCRIPTION: CT - Pelvis Wo Cont - 12/12/2023 5:56 pm CLINICAL HISTORY: PAIN COMPARISON: Sacrum And Coccyx dated 12/12/2023 TECHNIQUE: CT scan of the pelvis obtained without IV contrast. All CT scans are performed using dos e optimization technique as appropriate and may include automated exposure control or mA/KV adjustmen t according to patient size. FINDINGS: No fracture of the sacrum or coccyx identified. The deformity noted on the lateral radiogr aph may have been accentuated by the projection. Degenerative changes are present the sacroiliac join ts. The proximal femurs are intact. No dislocation. Degenerative changes are present in the lower spi ne. Atherosclerosis. IMPRESSION: No fracture of the sacrum or coccyx identified. Deformity on the radiograph was probably projectional. Some fine bony detail is lost as result of the patient's body habitus and CT technique . A nondisplaced fracture would be challenging to identify.
--- NOTE | 2023-12-12 18:45 | EDPHYS ---
Physician Documentation [facility] Name: Alvina Vail Age: 78 yrs Sex: Female : 1945 Arrival Date: 12/12/2023 Time: 13:50 Bed 10 Private MD: ED Physician Ryne Meng HPI: 12/11 20:44 This 78 yrs old Female presents to ER via Wheelchair with complaints of Fall Injury, kb Shoulder Pain, Back Pain, Neck Pain, >24Hrs Old. 20:44 Patient is a 78-year-old female who presents for right shoulder pain and low back pain kb after falling 2 days ago. States she had woken up at about 3 in the morning, walked to the restroom and on the way back she forgot to put the brakes on her walker and it slid out causing her to fall over. States she fell to the left side so is not sure why her right shoulder is hurting. Denies pain on left side. Historical: - Allergies: 14:17 Ciprofloxacin; nj1 - PMHx: 14:17 Arthritis; Cancer; Hyperlipidemia; Hypertension; pulmonary enbolism; nj1 - PSHx: 14:17 Cholecystectomy; Mastectomy, right; nj1 - Immunization history:: Client reports receiving the 2nd dose of the Covid vaccine. - Infectious Disease History:: Denies. - Social history:: Smoking status: Patient denies any tobacco usage or history of. ROS: 20:42 Constitutional: As per HPI kb Exam: 20:42 Constitutional: This is a well developed, well nourished patient who is awake, alert, kb and in no acute distress. Head/Face: Normocephalic, atraumatic. ENT: Moist Mucous membranes Cardiovascular: Regular rate Respiratory: Respirations even and unlabored. No increased work of breathing. Talking in full sentences Abdomen/GI: Soft, non-tender. No distention Skin: Warm, dry with normal turgor. Normal color. Neuro: Awake and alert, GCS 15, oriented to person, place, time, and situation. Moves all extremities. Normal gait. 20:42 Back: pain, that is moderate, of the lumbar area and sacrum, ROM is painful, normal spinal alignment noted, 20:42 Musculoskeletal/extremity: Extremities: grossly normal except: noted in the anterior aspect of right shoulder: decreased ROM, pain, tenderness, ROM: limited active range of motion due to pain, Circulation is intact in all extremities. Sensation intact. Weight bearing: can bear weight with assistance only, Vital Signs: 14:12 BP 144 / 67; Pulse 89; Resp 18; Temp 97.4(TE); Pulse Ox 95% on R/A; Weight 122.47 kg; nj1 Height 5 ft. 5 in. ; Pain 10/10; 14:12 Body Mass Index 44.93 (122.47 kg, 165.1 cm) nj 14:12 Pain Scale: Adult nj1 MDM: 14:04 Patient medically screened. kb 20:43 Differential diagnosis: contusion, fracture, strain. Data reviewed: vital signs, nurses kb notes. Historians other than the Patient: Daughter/Son: daughter. Counseling: I had a detailed discussion with the patient and/or guardian regarding the historical points, exam findings, and any diagnostic results supporting the discharge/admit diagnosis, radiology results, the need for outpatient follow up, a family practitioner, to return to the emergency department if symptoms worsen or persist or if there are any questions or concerns that arise at home. 20:43 ED course: Pt states tylenol #3 is the only thing that has ever helped pain. . kb 12/11 14:18 Order name: Lumbar Spine 3 Views; Complete Time: 15:31 EDMS 12/11 14:18 Order name: Sacrum And Coccyx; Complete Time: 15:35 EDMS 12/11 14:19 Order name: Shoulder Right 2 View; Complete Time: 15:31 EDIL 12/11 15:44 Order name: CT Pelvis wo Cont; Complete Time: 18:32 kb Administered Medications: 15:54 Drug: HYDROcodone-acetaminophen PO 5 mg-325 mg 1 tabs PO once Route: PO; cm10 18:46 Not Given (Patient Refused): [id number] mg IM once cm10 Disposition Summary: 12/12/23 18:44 Discharge Ordered Notes: Location: Home kb Condition: Stable kb Diagnosis - Fall on same level from slipping, tripping and stumbling without subsequent kb striking against object - Pain in right shoulder kb - Low back pain kb Followup: kb - With: Emergency Department - When: As needed - Reason: Worsening of condition Followup: kb - With: Private Physician - When: 2 - 3 days - Reason: Recheck today's complaints, Continuance of care, Re-evaluation by your physician Discharge Instructions: - Discharge Summary Sheet kb - Musculoskeletal Pain kb Forms: - Medication Reconciliation Form kb - Antibiotic Education kb - Prescription Opioid Use kb - Patient Portal Instructions kb - Leadership Thank You Letter kb Prescriptions: - acetaminophen-codeine 300-15 mg Oral tablet - take 1 tablet ORAL route every 4-6 hours As needed; 12 tablet; Refills: 0, kb Product Selection Permitted Signatures: Dispatcher [employer] EDMS Francesca Monreal FNP-C FNP-Ckb Jaco, Norma RN RN nj1 Julianne Patton RN RN cm10 Corrections: (The following items were deleted from the chart) 14:19 14:17 PMHx: Cancer; [place] [id number] 14:19 14:17 PMHx: Cancer; [place] [id number] 17:06 17:06 Pelvis Wo Cont+CT.RAD.BRZ ordered. EDMS EDMS 17:48 16:21 CT-ABD ordered. EDMS EDMS
--- NOTE | 2023-12-12 18:45 | ER ---
Nurse's Notes [facility] Name: Alvina Vail Age: 78 yrs Sex: Female : 1945 Arrival Date: 12/12/2023 Time: 13:50 Bed 10 Private MD: Diagnosis: Fall on same level from slipping, tripping and stumbling without subsequent striking against object;Pain in right shoulder;Low back pain Presentation: 12/11 14:12 Chief complaint: Patient states: Fell Monday when getting in bed. Complains of right nj1 shoulder, low back and right great toe. Coronavirus screen: Vaccine status: Patient reports receiving the 2nd dose of the covid vaccine. Ebola Screen: Patient denies travel to an Ebola-affected area in the 21 days before illness onset. Initial Sepsis Screen: Does the patient meet any 2 criteria? No. Patient's initial sepsis screen is negative. Does the patient have a suspected source of infection? No. Patient's initial sepsis screen is negative. Risk Assessment: Do you want to hurt yourself or someone else? Patient reports no desire to harm self or others. Onset of symptoms was December 10, 2023. 14:12 Method Of Arrival: Wheelchair nj 14:12 Acuity: JAS 3 nj1 Triage Assessment: 14:19 General: Appears in no apparent distress. uncomfortable, Behavior is calm, cooperative, nj1 appropriate for age. Pain: Complains of pain in Shoulder, right Pain currently is 10 out of 10 on a pain scale. Neuro: Level of Consciousness is awake, alert, obeys commands, Oriented to person, place, time, situation. Cardiovascular: Patient's skin is warm and dry. Respiratory: Airway is patent Respiratory effort is even, unlabored. Historical: - Allergies: 14:17 Ciprofloxacin; nj1 - PMHx: 14:17 Arthritis; Cancer; Hyperlipidemia; Hypertension; pulmonary enbolism; nj1 - PSHx: 14:17 Cholecystectomy; Mastectomy, right; nj1 - Immunization history:: Client reports receiving the 2nd dose of the Covid vaccine. - Infectious Disease History:: Denies. - Social history:: Smoking status: Patient denies any tobacco usage or history of. Screenin:10 [facility] ED Fall Risk Assessment (Adult) History of falling in the last 3 months, cm10 including since admission Yes- single mechanical fall (1 pt) Confusion or Disorientation No (0 pts) Intoxicated or Sedated No (0 pts) Impaired Gait Yes (1 pt) Mobility Assist Device Used Yes (1 pt) Altered Elimination No (0 pt) Score/Fall Risk Level 3 or more points = High Risk Oriented to surroundings, Maintained a safe environment, Hourly rounding (assess needs \T\ fall precautionary measures) done. Abuse screen: Denies threats or abuse. Denies injuries from another. Nutritional screening: No deficits noted. 18:54 Tuberculosis screening: No symptoms or risk factors identified. ap3 Assessment: 16:11 General: Appears in no apparent distress. comfortable, Behavior is calm, cooperative. cm10 Pain: Complains of pain in Right shoulder, back pain, neck pain and pain to right great toe. Neuro: No deficits noted. Level of Consciousness is awake, alert, obeys commands, Oriented to person, place, time, situation, Appropriate for age. Respiratory: No deficits noted. Airway is patent Respiratory effort is even, unlabored, Respiratory pattern is regular, symmetrical. 16:11 Musculoskeletal: Reports pain in right shoulder, neck, right great toe, and back. cm10 Vital Signs: 14:12 BP 144 / 67; Pulse 89; Resp 18; Temp 97.4(TE); Pulse Ox 95% on R/A; Weight 122.47 kg; nj1 Height 5 ft. 5 in. ; Pain 10/10; 14:12 Body Mass Index 44.93 (122.47 kg, 165.1 cm) nj1 14:12 Pain Scale: Adult or1 ED Course: 13:53 Patient arrived in ED. mg5 14:04 Francesca Monreal FNP-C [facility] kb 14:04 Ryne Meng MD is Attending Physician. kb 14:17 Triage completed. nj1 14:19 Arm band placed on left wrist. nj1 15:23 Lumbar Spine 3 Views In Process Unspecified. EDMS 15:23 Sacrum And Coccyx In Process Unspecified. EDMS 15:23 Shoulder Right 2 View In Process Unspecified. EDMS 15:25 Julianne Patton, RN is Primary Nurse. cm10 16:10 Patient has correct armband on for positive identification. Call light in reach. cm10 Provided Education on: ER process and procedures.. 17:57 CT Pelvis wo Cont In Process Unspecified. EDMS 18:54 No provider procedures requiring assistance completed. Patient did not have IV access ap3 during this emergency room visit. Administered Medications: 15:54 Drug: HYDROcodone-acetaminophen PO 5 mg-325 mg 1 tabs PO once Route: PO; cm10 18:46 Not Given (Patient Refused): [id number] mg IM once cm10 Medication: 16:10 VIS not applicable for this client. cm10 Outcome: 18:44 Discharge ordered by MD. brown 18:54 Discharged to home via wheelchair, with family, ap3 18:54 Condition: good 18:54 Discharge instructions given to patient, family, Instructed on discharge instructions, follow up and referral plans. medication usage, Demonstrated understanding of instructions, follow-up care, medications, Prescriptions given X 1, 18:55 Patient left the ED. ap3 Signatures: Dispatcher [employer] EDMS Francesca Monreal, JACOBO CANAS-Rhonda Davis RN RN ap3 Juliana Dickey RN RN dion1 Julianne Patton RN RN cm10 Tamara Duncan mg5 Corrections: (The following items were deleted from the chart) 14:19 14:17 PMHx: Cancer; nj1 nj1 14:19 14:17 PMHx: Cancer; nj1 nj1
[2023-12-13 06:49] VITALS: BP 144/67; TEMP 97.4; O2SAT 95
== END 2023-12-12 18:55 | disposition home or self-care (01) ==
LOC: ER 13:50
DX: M25.511 Pain in right shoulder (principal); M54.50 Low back pain, unspecified; W01.0XXA Fall on same level from slipping, tripping and stumbling without subsequent striking against object, initial encounter
CPT/HCPCS: 72100; 72192; 72220; 99283

== ENCOUNTER 2023-12-14 08:16 | Inpatient (IN) | payer OTHER ==
[2023-12-14 09:27] LABS: SARS-CoV-2 Antigen CONTROL BLUE LINE VIS/BG OK; SARS-CoV-2 Antigen Rapid Res Negative (Negative)
[2023-12-14 09:32] LABS: Absolute Lymphocytes (CBC) 1.5 K/uL (0.7-4.9); Absolute Monocytes 1.4 K/uL (0.1-1.3); Absolute Neutrophil 8.1 K/uL (1.8-8.0); Basophils % 0.2 % (0-1.3); Hematocrit 35.1 % (36.0-45.0); Hemoglobin 11.5 g/dL (12.0-15.0); Lymphocytes % 13.8 % (15.3-44.8); MCH 28.3 pg (27.0-35.0); MCHC 32.7 g/dL (32.0-36.0); MCV 86.8 fL (80-100); MPV 8.7 fL (7.6-11.3); Monocytes % 12.7 % (3.3-12.3); Neutrophils % 73.3 % (41.7-73.7); Platelets 235 thou/uL (152-406); RBC Red Blood Cell Count 4.05 M/uL (3.86-4.86); Red Cell Distribution Width 13.9 % (12.1-15.2)
[2023-12-14 09:46] LABS: PT Prothrombin Time 14.6 SECONDS (9.4-12.5); PTT, Activated Partial Thromb 29.6 SECONDS (24.3-36.9); Protime INR 1.31
[2023-12-14 09:51] LABS: Albumin 2.9 g/dL (3.4-5.0); Albumin/Globulin Ratio 0.7 (1.1-1.8); Anion Gap 9.8 mEq/L (5.0-15.0); Bilirubin Total 1.2 mg/dL (0.2-1.0); Globulin 4.4 g/dL (2.3-3.5); Potassium 2.8 mEq/L (3.5-5.1); Protein, Total 7.3 g/dL (6.4-8.2)
[2023-12-14 10:00] LABS: Specific Gravity 1.016 (1.005-1.030); Sqamous Epithelial <5 /HPF (None Seen); Urine Bacteria None Seen /HPF (<20); Urine Bilirubin NEGATIVE (Negative); Urine Blood 1+ (Negative); Urine Clarity Turbid (Clear); Urine Color Yellow (Yellow); Urine Culture Reflex Order NOT NEEDED; Urine Glucose NEGATIVE (Negative); Urine Ketones TRACE (Negative); Urine Microscopic Reflex YN ORDER UMIC; Urine Mucus Slight /HPF (None Seen); Urine Nitrite NEGATIVE (Negative); Urine Protein TRACE (Negative); Urine RBC <5 /HPF (None Seen); Urine Urobilinogen Normal (Normal); Urine WBC <5 /HPF (<5)
--- NOTE | 2023-12-14 10:09 | RAD REPORT ---
EXAM DESCRIPTION: Bhupendrat Single View12/14/2023 9:31 am CLINICAL HISTORY: FEVER COMPARISON: Chest Single View dated 01/06/2019; CHEST SINGLE VIEW dated 09/27/2010; CHEST SINGLE VIEW d ated 06/01/2008; CHEST PA AND LAT 2 VIEW dated 09/04/2003 TECHNIQUE: Portable AP view of the chest. FINDINGS: The lungs are clear. No pneumothorax or effusion. The cardiomediastinal contours are unre markable. IMPRESSION: No acute cardiopulmonary process.
--- NOTE | 2023-12-14 10:10 | RAD REPORT ---
EXAM DESCRIPTION: RAD - Hand Right 3 View - 12/14/2023 9:31 am CLINICAL HISTORY: PAIN COMPARISON: No comparisons TECHNIQUE: Right hand, 3 views. FINDINGS: No fracture is identified. Moderate to advanced degenerative changes at the thumb base. Moderate degenerative changes of the pro ximal and distal interphalangeal articulations, most pronounced at the second, third, and fifth digit s. There is no dislocation or periosteal reaction noted. No foreign body. Mild mineralization in the reg ion of the TFCC. IMPRESSION: No acute osseous abnormality. Moderate to advanced degenerative changes as above. Minera lization in the region of the TFCC, may reflect sequelae of the positional arthropathy such as CPPD.
[2023-12-14] MEDS ORDERED: KCL 20 MEQ/100 mL IVPB 100 ML IV ONE (10:11)
[2023-12-14] MEDS ORDERED: NA CHLORIDE 0.9% 500 ML ONE (10:11)
--- NOTE | 2023-12-14 10:56 | RAD REPORT ---
EXAM DESCRIPTION: CT - Abdomen Pelvis W Contrast - 12/14/2023 10:33 am CLINICAL HISTORY: abnormal lfts, fever COMPARISON: Angio Aorta For Dissection dated 01/06/2019 TECHNIQUE: Thin cut axial CT imaging of the abdomen and pelvis was performed following intravenous a dministration of 100 mL Isovue 300. Multiplanar reformats were generated and reviewed. All CT scans are performed using dose optimization technique as appropriate and may include automated exposure control or mA/KV adjustment according to patient size. FINDINGS: No suspicious findings in the lung bases. The liver, spleen, adrenal glands, and pancreas show no suspicious findings. Gallbladder was surgical ly removed. Symmetric renal function is seen with no hydronephrosis or suspicious renal mass. No discrete renal o r ureteral calculi, although some gonadal vein phleboli particularly on the right confound the evalua tion, however they appear stable. No dilated bowel loops or bowel wall thickening. No free air, free fluid or inflammatory stranding. D istal colonic diverticulosis. No hernia, mass or bulky lymphadenopathy. The urinary bladder is withou t significant finding. No suspicious bony findings. IMPRESSION: No acute intra-abdominal process. Stable incidental findings as above.
--- NOTE | 2023-12-14 11:50 | RAD REPORT ---
EXAM DESCRIPTION: US - Abdomen Exam Limited - 12/14/2023 11:20 am CLINICAL HISTORY: fever, abnormal lfts COMPARISON: Abdomen Pelvis W Contrast dated 12/14/2023 TECHNIQUE: Sonographic grayscale and color flow images of the right upper abdominal quadrant were o btained. FINDINGS: The gallbladder was surgically removed. The common bile duct is within normal limits for p ostcholecystectomy status, measuring 8 mm. No evidence of choledocholithiasis within the visualized g allbladder. The liver demonstrates diffuse parenchymal hyperechogenicity suggesting steatosis. Geographic region measuring 3.1 x 2.2 x 1.7 cm in the deep aspect of the left lobe near the hilum, not well characteriz ed, may represent focal fatty sparing. No correlate was identified for this finding on the recent CT. No evidence of intrahepatic biliary ductal dilation. IMPRESSION: Diffuse hepatic parenchymal hyperechogenicity suggesting steatosis. Geographic region in the left lobe near the hilum measuring up to 3.1 cm, not well characterized, but may represent focal fatty sparing. Status post cholecystectomy. Mildly prominent common bile duct, with expected limits for postcholecys tectomy status.
--- NOTE | 2023-12-14 12:05 | EDPHYS ---
Physician Documentation [facility] Name: Alvina Vail Age: 78 yrs Sex: Female : 1945 Arrival Date: 12/14/2023 Time: 08:16 Bed 14 Private MD: ED Physician Mau Damon HPI: 12/13 09:20 This 78 yrs old Female presents to ER via EMS with complaints of Fever. rn 09:20 The patient reports fever, that was measured at 102 degrees Fahrenheit. Onset: The rn symptoms/episode began/occurred yesterday. Modifying factors: there are no obvious modifying factors. Associated signs and symptoms: Pertinent positives: chills, myalgias, Generalized weakness, Pertinent negatives: abdominal pain, altered mental status, chest pain, cough, diarrhea, hemoptysis, runny nose, skin rash, shortness of breath, sore throat, swelling, vomiting. Severity of symptoms: At their worst the symptoms were mild in the emergency department the symptoms are unchanged. The patient has not experienced similar symptoms in the past. Patient reports fever to 102 at home, began yesterday, feels generalized weakness and malaise with low energy but no focal symptoms. Fell a week ago and had negative x-rays and CT patient reports still soreness mainly in both shoulders, back, no acute traumatic finding at that time. And has new pain in the right thumb. No neck stiffness. No cough or shortness of breath. Historical: - Allergies: 08:34 Ciprofloxacin; kc6 - Home Meds: 14:26 letrozole 2.5 mg Oral tab 1 tab once daily [Active]; metoprolol tartrate 25 mg Oral tab tl4 1 tab 2 times per day [Active]; Triamcinolone Acetonide Topical [Active]; Xarelto 10 mg oral tablet 1 tab daily [Active]; Singulair 10 mg Oral tab 1 tab once daily [Active]; losartan-hydrochlorothiazide 100-25 mg oral tablet 1 tab daily [Active]; Vitamin D3 125 mcg (5,000 unit) oral tablet 1 tab daily [Active]; Tylenol Arthritis Pain 650 mg oral tablet, extended release 2 tabs every 12 hours [Active]; Tumeric 1,000 mg twice a day [Active]; hyoscyamine sulfate 0.125 mg SL Tablet, Sublingual [Active]; CoQ-10 100 mg oral capsule 3 caps daily [Active]; rosuvastatin oral daily [Active]; metronidazole gel daily [Active]; Finacea 15 % topical foam as needed [Active]; - PMHx: 08:34 Arthritis; Cancer; Hyperlipidemia; Hypertension; pulmonary enbolism; Diabetes mellitus; kc6 - PSHx: 08:34 Cholecystectomy; Mastectomy; hysterectomy; kc6 14:26 Ligation of fallopian tube; Cataract surgery; tl4 - Immunization history:: Client reports receiving the 2nd dose of the Covid vaccine, Flu vaccine is not up to date. - Infectious Disease History:: Denies. - Social history:: Smoking status: Patient denies any tobacco usage or history of. - Family history:: not pertinent. - Hospitalizations: : No recent hospitalization is reported. 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, ENT: Negative for injury, pain, and discharge, Neck: Negative for injury, pain, and swelling, Cardiovascular: Negative for chest pain, palpitations, and edema, Respiratory: Negative for shortness of breath, cough, wheezing, and pleuritic chest pain, Abdomen/GI: Negative for abdominal pain, nausea, vomiting, diarrhea, and constipation, Back: Negative for injury and pain, MS/Extremity: Positive for right thumb pain Skin: Negative for injury, rash, and discoloration, Neuro: Positive for generalized weakness Exam: 09:20 Constitutional: This is a well developed, well nourished patient who is awake, alert, rn and in no acute distress. ENT: Dry mucous membranes Neck: No neck stiffness no meningismus. Cardiovascular: Regular rate and rhythm. No pulse deficits. Respiratory: No increased work of breathing, no retractions or nasal flaring. Abdomen/GI: Soft, non-tender MS/ Extremity: Pulses equal, no cyanosis. Mild painful range of motion bilateral shoulders. Mild tenderness at the base of the right thumb without deformity or ecchymosis. Neuro: Awake and alert, GCS 15, oriented to person, place, time, and situation. Cranial nerves II-XII grossly intact. Motor strength 4/5 in all extremities. Sensory grossly intact Vital Signs: 08:32 BP 127 / 73; Pulse 100; Resp 19 S; Temp 99.6(O); Pulse Ox 93% on R/A; Weight 121.11 kg kc6 (M); Height 5 ft. 5 in. (R); 10:26 BP 131 / 71; Pulse 104; Resp 19 S; Pulse Ox 95% on R/A; kc6 11:24 BP 127 / 73; Pulse 95; Resp 16 S; Pulse Ox 97% on R/A; kc6 12:08 BP 141 / 71; Pulse 95; Resp 18; Pulse Ox 98% on R/A; Pain 6/10; tl4 13:00 BP 150 / 71; Pulse 92; Resp 15; Pulse Ox 100% on R/A; tl4 14:00 BP 159 / 77; Pulse 94; Resp 20; Temp 98.7(O); Pulse Ox 98% on R/A; tl4 08:32 Body Mass Index 44.43 (121.11 kg, 165.1 cm) [facility] 12:08 Pain Scale: Adult tl4 MDM: 08:33 Patient medically screened. rn 11:58 Differential diagnosis: viral Infection, bacterial infection, URI, pneumonia UTI, rn gastroenteritis, meningitis. 11:59 Data reviewed: vital signs, nurses notes, lab test result(s), radiologic studies, CT rn scan, plain films, ultrasound, and as a result, I will admit patient. Consideration of Admission/Observation Patient was admitted/placed on observation. Escalation of care including admission/observation considered. Care significantly affected by the following chronic conditions: HTN, Diabetes. Counseling: I had a detailed discussion with the patient and/or guardian regarding the historical points, exam findings, and any diagnostic results supporting the discharge/admit diagnosis, lab results, radiology results, the need for further work-up and treatment in the hospital. Response to treatment: There is no appreciated change of the patient's symptoms at this time, and as a result, I will admit patient. Special discussion:. ED course: No source of infection identified at this time. Chest x-ray clear. CT abdomen pelvis without acute findings. Urine negative. COVID and flu negative. No focal joint that seems like a septic arthritis, patient is hurting all over. Patient still too weak to even sit up in bed much less ambulate or get out of bed. Will admit to hospitalist service for further evaluation and care.. 12/13 08:36 Order name: Blood Culture Adult (2) rn 12/13 08:36 Order name: CBC with Diff; Complete Time: 09:44 rn 12/13 08:36 Order name: CMP; Complete Time: 10:05 rn 12/13 08:36 Order name: Lactate w/ 2H reflex if indic.; Complete Time: 10:05 rn 12/13 08:36 Order name: Protime (+inr); Complete Time: 10:05 rn 12/13 08:36 Order name: Ptt, Activated; Complete Time: 10:05 rn 12/13 08:36 Order name: Urinalysis w/ reflexes; Complete Time: 10:05 rn 12/13 08:36 Order name: SARS RAPID; Complete Time: 09:44 rn 12/13 08:36 Order name: Flu; Complete Time: 10:05 rn 12/13 13:38 Order name: T4 Free EDMS 12/13 13:38 Order name: Thyroid Stimulating Hormone EDMS 12/13 13:38 Order name: Basic Metabolic Panel EDMS 12/13 13:38 Order name: Basic Metabolic Panel EDMS 12/13 13:38 Order name: CBC with Automated Diff EDMS 12/13 13:38 Order name: CBC with Automated Diff EDMS 12/13 13:38 Order name: Lipid Profile EDMS 12/13 13:38 Order name: Lipid Profile EDMS 12/13 13:38 Order name: Magnesium EDMS 12/13 13:38 Order name: Magnesium EDMS 12/13 13:38 Order name: Phosphorus EDMS 12/13 13:38 Order name: Phosphorus EDMS 12/13 13:38 Order name: Magnesium EDMS 12/13 13:38 Order name: Phosphorus EDMS 12/13 08:36 Order name: Chest Single View XRAY; Complete Time: 10:11 rn 12/13 08:49 Order name: XRAY Hand RIGHT 3 View; Complete Time: 10:11 rn 12/13 10:12 Order name: CT Abd/Pelvis - IV Contrast Only; Complete Time: 11:19 rn 12/13 10:12 Order name: US Abdomen Limited; Complete Time: 11:55 rn 12/13 08:36 Order name: EKG; Complete Time: 08:37 rn 12/13 13:38 Order name: Physical Therapy Consult EDMS 12/13 08:36 Order name: Accucheck; Complete Time: 09:28 rn 12/13 08:36 Order name: Cardiac monitoring; Complete Time: 09:07 rn 08/08 08:36 Order name: EKG - Nurse/Tech; Complete Time: 09: rn 12/13 08:36 Order name: IV Saline Lock - Large Bore; Complete Time: 09:28 rn 12/13 08:36 Order name: Labs collected and sent; Complete Time: 09:28 rn 12/13 08:36 Order name: O2 Per Protocol; Complete Time: 08:40 rn 12/13 08:36 Order name: O2 Sat Monitoring; Complete Time: 08:40 rn 12/13 08:36 Order name: Vital Signs; Complete Time: 08:40 rn Administered Medications: 10:16 Drug: Potassium Chloride IV 10 mEq IV at calculated rate once; administer over 1-2 kc6 hours Route: IV; Rate: calculated rate; Site: right forearm; 15:52 Follow up: Response: No adverse reaction; IV Status: Completed infusion tl4 15:20 Drug: Rocephin IV 1 grams IV at calculated rate once; Given slow IV push per pharmacy tl4 instructions Route: IV; Rate: calculated rate; Site: left forearm; Delivery: Primary tubing; 15:53 Follow up: Response: No adverse reaction; IV Status: Completed infusion; IV Intake: [id number] Disposition Summary: 12/14/23 12:04 Hospitalization Ordered Notes: Hospitalization Status: Observation rn Provider: Jose Fuentes rn [facility] rn Condition: Stable rn Problem: new rn Symptoms: are unchanged rn Bed/Room Type: Standard rn Room Assignment: 228(12/14/23 14:44) ss Diagnosis - Fever, unspecified rn - Muscle weakness (generalized) rn Forms: - Medication Reconciliation Form rn - SBAR form rn - Leadership Thank You Letter rn Signatures: Dispatcher [employer] EDMS Tina Burton Roman, MD MD rn Blanchard, Shelby, RN RN ss Campbell, Kaitlyn, RN RN kc6 Young Merrill RN RN tl4 Corrections: (The following items were deleted from the chart) 08:37 08:37 BLOOD CULTURE*+BA.LAB.BRZ ordered. EDMS EDMS 08:37 08:37 CBC+H.LAB.BRZ ordered. EDMS EDMS 08:37 08:37 COMPREHENSIVE METABOLIC PANEL+C.LAB.BRZ ordered. EDMS EDMS 08:37 08:37 LACTATE+C.LAB.BRZ ordered. EDMS EDMS 08:37 08:37 PROTIME (+INR)+COAG.LAB.BRZ ordered. EDMS EDMS 08:37 08:37 PTT, ACTIVATED+COAG.LAB.BRZ ordered. EDMS EDMS 08:37 08:37 Urinalysis+U.LAB.BRZ ordered. EDMS EDMS 08:37 08:37 SARS-COV-2 Antigen Rapid+I.LAB.BRZ ordered. EDMS EDMS 08:37 08:37 Influenza Screen (A \T\ B)+BA.LAB.BRZ ordered. EDMS EDMS 08:49 08:49 Hand Right 3 View+RAD.RAD.BRZ ordered. EDMS EDMS 13:45 12:04 rn bd 13:58 13:45 217 bd bd 14:13 13:58 228 bd bd 14:44 14:13 bd ss
--- NOTE | 2023-12-14 12:05 | ER ---
Nurse's Notes [facility] Name: Alvina Vail Age: 78 yrs Sex: Female : 1945 Arrival Date: 12/14/2023 Time: 08:16 Bed 14 Private MD: Diagnosis: Fever, unspecified;Muscle weakness (generalized) Presentation: 12/13 08:32 Chief complaint: EMS states: they were toned out for generalized weakness and fever kc6 that started yesterday. pt reports falling 2 days ago. denies LOC, takes Xarelto daily. Coronavirus screen: At this time, the client does not indicate any symptoms associated with coronavirus-19. Ebola Screen: No symptoms or risks identified at this time. Initial Sepsis Screen: Does the patient meet any 2 criteria? HR > 90 bpm. Does the patient have a suspected source of infection? No. Patient's initial sepsis screen is negative. Risk Assessment: Do you want to hurt yourself or someone else? Patient reports no desire to harm self or others. Onset of symptoms was December 14, 2023. 08:32 Method Of Arrival: EMS: [facility] kc6 08:32 Acuity: JAS 3 kc6 Triage Assessment: 08:34 General: Appears in no apparent distress. comfortable, obese, well groomed, well kc6 developed, Behavior is calm, cooperative, appropriate for age, Reports chills for 12-24 hours, fever for 12-24 hours, feeling ill for 12-24 hours, fatigue for 12-24 hours. EENT: No signs and/or symptoms were reported regarding the EENT system. Neuro: Level of Consciousness is awake, alert, obeys commands, Oriented to person, place, time, situation, Appropriate for age Reports weakness. Cardiovascular: Reports chest pain, Heart tones S1 S2 present Capillary refill < 3 seconds. Respiratory: Airway is patent Trachea midline Respiratory effort is even, unlabored, Respiratory pattern is regular, symmetrical. GI: No signs and/or symptoms were reported involving the gastrointestinal system. : No signs and/or symptoms were reported regarding the genitourinary system. Derm: No signs and/or symptoms reported regarding the dermatologic system. Skin is intact, is healthy with good turgor, Skin is pink, warm \T\ dry. Musculoskeletal: No signs and/or symptoms reported regarding the musculoskeletal system. Circulation, motion, and sensation intact. Capillary refill < 3 seconds, Range of motion: intact in all extremities. 16:12 Pain: Complains of pain in back, right hand, right leg and left leg. tl4 Historical: - Allergies: 08:34 Ciprofloxacin; kc6 - Home Meds: 14:26 letrozole 2.5 mg Oral tab 1 tab once daily [Active]; metoprolol tartrate 25 mg Oral tab tl4 1 tab 2 times per day [Active]; Triamcinolone Acetonide Topical [Active]; Xarelto 10 mg oral tablet 1 tab daily [Active]; Singulair 10 mg Oral tab 1 tab once daily [Active]; losartan-hydrochlorothiazide 100-25 mg oral tablet 1 tab daily [Active]; Vitamin D3 125 mcg (5,000 unit) oral tablet 1 tab daily [Active]; Tylenol Arthritis Pain 650 mg oral tablet, extended release 2 tabs every 12 hours [Active]; Tumeric 1,000 mg twice a day [Active]; hyoscyamine sulfate 0.125 mg SL Tablet, Sublingual [Active]; CoQ-10 100 mg oral capsule 3 caps daily [Active]; rosuvastatin oral daily [Active]; metronidazole gel daily [Active]; Finacea 15 % topical foam as needed [Active]; - PMHx: 08:34 Arthritis; Cancer; Hyperlipidemia; Hypertension; pulmonary enbolism; Diabetes mellitus; kc6 - PSHx: 08:34 Cholecystectomy; Mastectomy; hysterectomy; kc6 14:26 Ligation of fallopian tube; Cataract surgery; tl4 - Immunization history:: Client reports receiving the 2nd dose of the Covid vaccine, Flu vaccine is not up to date. - Infectious Disease History:: Denies. - Social history:: Smoking status: Patient denies any tobacco usage or history of. - Family history:: not pertinent. - Hospitalizations: : No recent hospitalization is reported. Screenin:37 [facility] ED Fall Risk Assessment (Adult) History of falling in the last 3 months, kc6 including since admission Yes- single mechanical fall (1 pt) Confusion or Disorientation No (0 pts) Intoxicated or Sedated No (0 pts) Impaired Gait Yes (1 pt) Mobility Assist Device Used Yes (1 pt) Altered Elimination No (0 pt) Score/Fall Risk Level 3 or more points = High Risk. Abuse screen: Denies threats or abuse. Denies injuries from another. Nutritional screening: No deficits noted. Tuberculosis screening: No symptoms or risk factors identified. Assessment: 08:38 Reassessment: please see triage. kc6 09:38 Reassessment: Patient appears in no apparent distress at this time. No changes from [facility] previously documented assessment. Patient and/or family updated on plan of care and expected duration. Pain level reassessed. Patient is alert, oriented x 3, equal unlabored respirations, skin warm/dry/pink. 10:26 Reassessment: Patient appears in no apparent distress at this time. No changes from [facility] previously documented assessment. Patient and/or family updated on plan of care and expected duration. Pain level reassessed. Patient is alert, oriented x 3, equal unlabored respirations, skin warm/dry/pink. 11:24 Reassessment: Patient appears in no apparent distress at this time. No changes from [facility] previously documented assessment. Patient and/or family updated on plan of care and expected duration. Pain level reassessed. Patient is alert, oriented x 3, equal unlabored respirations, skin warm/dry/pink. 12:18 Reassessment: Patient and/or family updated on plan of care and expected duration. Pain tl4 level reassessed. Patient is alert, oriented x 3, equal unlabored respirations, skin warm/dry/pink. Pt c/o pain in neck, back, and right thumb. Pt denies any needs at this time. Call diaz at bedside. Family at bedside. Will continue to monitor. 12:24 Reassessment: Current medication list requested from patient. She is trying to obtain a tl4 list of those medications. 13:00 Reassessment: Patient and/or family updated on plan of care and expected duration. Pain tl4 level reassessed. Patient is alert, oriented x 3, equal unlabored respirations, skin warm/dry/pink. Pt denies any needs. Pt eating food brought by family. Call diaz in reach. Family in room. Will continue to monitor. 14:21 Reassessment: Patient and/or family updated on plan of care and expected duration. Pain tl4 level reassessed. Patient is alert, oriented x 3, equal unlabored respirations, skin warm/dry/pink. Pt updated on room change, will update as available. Pt denies any needs. Call diaz in reach. Family at bedside. Will continue to monitor. Vital Signs: 08:32 BP 127 / 73; Pulse 100; Resp 19 S; Temp 99.6(O); Pulse Ox 93% on R/A; Weight 121.11 kg kc6 (M); Height 5 ft. 5 in. (R); 10:26 BP 131 / 71; Pulse 104; Resp 19 S; Pulse Ox 95% on R/A; kc6 11:24 BP 127 / 73; Pulse 95; Resp 16 S; Pulse Ox 97% on R/A; kc6 12:08 BP 141 / 71; Pulse 95; Resp 18; Pulse Ox 98% on R/A; Pain 6/10; tl4 13:00 BP 150 / 71; Pulse 92; Resp 15; Pulse Ox 100% on R/A; tl4 14:00 BP 159 / 77; Pulse 94; Resp 20; Temp 98.7(O); Pulse Ox 98% on R/A; tl4 08:32 Body Mass Index 44.43 (121.11 kg, 165.1 cm) kc6 12:08 Pain Scale: Adult tl4 ED Course: 08:32 Patient arrived in ED. kc6 08:33 Mau Damon MD is Attending Physician. rn 08:34 Triage completed. kc6 08:34 Arm band placed on. kc6 08:37 Patient has correct armband on for positive identification. Bed in low position. Call kc6 light in reach. Side rails up X 1. Adult w/ patient. Pulse ox on. NIBP on. Pillow given. 08:38 Shruthi Jara, RN is Primary Nurse. kc6 09:03 EKG done, by ED staff, reviewed by Mau Damon MD. cc6 09:28 Inserted saline lock: 22 gauge in right forearm, using aseptic technique. Blood kc6 collected. Flushed with 10 mL NS. 09:33 Chest Single View XRAY In Process Unspecified. EDMS 09:33 XRAY Hand RIGHT 3 View In Process Unspecified. EDMS 09:51 Straight cath inserted, using sterile technique, 14 Fr. Specimen obtained. Returned kc6 clear yellow urine. Patient tolerated well. 10:35 CT Abd/Pelvis - IV Contrast Only In Process Unspecified. EDMS 11:21 US Abdomen Limited In Process Unspecified. EDMS 11:25 Assisted to bathroom. with purewick in place. kc6 12:02 Jose Fuentes is Hospitalizing Provider. rn 12:05 Report given to Young Walter RN. kc6 12:19 No provider procedures requiring assistance completed. tl4 16:11 Provided Education on: call emily ed process. tl4 16:12 Patient admitted, IV remains in place. tl4 Administered Medications: 10:16 Drug: Potassium Chloride IV 10 mEq IV at calculated rate once; administer over 1-2 kc6 hours Route: IV; Rate: calculated rate; Site: right forearm; 15:52 Follow up: Response: No adverse reaction; IV Status: Completed infusion tl4 15:20 Drug: Rocephin IV 1 grams IV at calculated rate once; Given slow IV push per pharmacy tl4 instructions Route: IV; Rate: calculated rate; Site: left forearm; Delivery: Primary tubing; 15:53 Follow up: Response: No adverse reaction; IV Status: Completed infusion; IV Intake: [id number] Medication: 12:19 VIS not applicable for this client. tl4 Intake: 15:53 IV: 50ml; Total: 50ml. tl4 Outcome: 12:04 Decision to Hospitalize by Provider. rn 16:12 Admitted to Med/surg accompanied by tech, via stretcher, tl4 16:12 Condition: stable 16:12 Instructed on the need for admit, 16:12 Patient left the ED. tl4 Signatures: Dispatcher [employer] EDMS Mau Damon MD MD rn Campbell, Kaitlyn, RN RN kc6 Young Merrill RN RN tl4 Jannette Souza RN RN cc6
[2023-12-14] MEDS ORDERED: NA CHLORIDE 0.9% 50 ML ONE (12:13)
[2023-12-14] MEDS ORDERED: CEFTRIAXONE 1000 MG/VIAL ONE (12:13)
--- NOTE | 2023-12-14 12:56 | P.HP ---
Certification for Inpatient Patient admitted to: Inpatient With expected LOS: >2 Midnights Patient will require the following post-hospital care: None Practitioner: I am a practitioner with admitting privileges, knowledge of patient current condition, hospital course, and medical plan of care. Services: Services provided to patient in accordance with Admission requirements found in Title 42 Section 412.3 of the Code of Federal Regulations Patient History Date of Service: 12/14/23 Reason for admission: Fever of unknown source History of Present Illness: Alvina Vail is a 78 year old female with Pmhx arthritis, cancer, hyperlipidemia, hypertension, pulmonary embolism, diabetes mellitus who presented to the ED with chief complaint of a fever as high as 102 F associated with myalgia and generalized weakness with onset yesterday. She reports having a similar episode concerning the myalgia a few years ago. She reports being on a statin medication and on letrozole, both can cause muscle pain. Ultimately, she had fallen on Monday and was imaged in the ED on Monday with no acute findings. Initial vitals: BP 127 / 73; Pulse 100; Resp 19 S; Temp 99.6(O); Pulse Ox 93% on R/A Laboratory evaluation WBC 11, H&H 11.5/35.1, sodium 133, potassium 2.8, serum glucose 168 Alvina will be admitted to hospitalist service for further evaluation and treatment. Allergies ciprofloxacin Allergy (Verified 04/10/23 09:39) Severe Joint Pain Home Medications: Letrozole [Femara*] 2.5 mg PO BEDTIME 01/06/19 Metoprolol Tartrate [Lopressor*] 25 mg PO BID 01/06/19 Montelukast Sodium [Singulair] 10 mg PO BEDTIME 01/06/19 Rivaroxaban [Xarelto*] 10 mg PO BEDTIME 01/06/19 Turmeric/Turmeric Root Extract [Turmeric 500 mg Capsule] 1,000 mg PO BID 01/06/19 Ubidecarenone [Co Q-10] 100 mg PO BEDTIME 01/06/19 Acetaminophen [Tylenol Arthritis] 2 tab PO BID 04/10/23 Cholecalciferol (Vitamin D3) [Vitamin D3] 50 mcg PO DAILY 04/10/23 Cranberry Conc/C/Bacill Coag [Cranberry Tablet] 1 each PO DAILY 04/10/23 Cyanocobalamin (Vitamin B-12) [Vitamin B12] 2,500 mcg PO DAILY 04/10/23 Famotidine [Pepcid] 20 mg PO SEECOM 04/10/23 Fluticasone Furoate [Arnuity Ellipta] 100 mcg IH DAILYPRN PRN 04/10/23 Lactobacillus Rhamnosus GG [Culturelle] 1 each PO BEDTIME 04/10/23 Losartan/Hydrochlorothiazide [Losartan-Hctz 100-25 mg Tab] 1 each PO DAILY 04/10/23 Multivit-Min/FA/Lycopen/Lutein [Centrum Silver Tablet] 1 each PO DAILY 04/10/23 Rosuvastatin [Crestor] 5 mg PO BEDTIME 04/10/23 Semaglutide [Ozempic] 0.5 mg SQ EVERY 7TH DAY 04/10/23 - Past Medical/Surgical History Diabetic: Yes -: Asthma -: Breast cancer -: Thromboembolism -: HTN -: DM -: arthritis -: Left mastectomy -: Cholecystectomy -: Hysterectomy -: ovaran surgery - Family History Mother -: Stroke - Social History Smoking Status: Never smoker Alcohol use: Yes CD- Drugs: No Caffeine use: No Review of Systems General: Fever, Weakness, Other (myalgia) Physical Examination - Physical Exam General: Alert, In no apparent distress, Oriented x3 HEENT: Atraumatic, Normocephalic, PERRLA Neck: Supple, 2+ carotid pulse no bruit Respiratory: Clear to auscultation bilaterally, Normal air movement Cardiovascular: Normal pulses, Regular rate/rhythm, Normal S1 S2 Capillary refill: <2 Seconds Gastrointestinal: Normal bowel sounds, Soft and benign Musculoskeletal: No clubbing Integumentary: No rashes Neurological: Normal speech, Other (weakness) - Studies Laboratory Data (last 24 hrs) 12/14/23 12/14/23 12/14/23 09:10 09:10 09:10 WBC 11.00 H Hgb 11.5 L Hct 35.1 L Plt Count 235 PT 14.6 H INR 1.31 APTT 29.6 Sodium 133 L Potassium 2.8 L BUN 14 Creatinine 0.54 L Glucose 168 H Total Bilirubin 1.2 H AST 13 L ALT 26 Alkaline Phosphatase 120 H Microbiology Data (last 24 hrs): 12/14/23 08:58 Nasopharnyx Influenza Type A Antigen Screen - Final 12/14/23 08:58 Nasopharnyx Influenza Type B Antigen Screen - Final Assessment and Plan - Plan Assessment and plan Fever of unknown source -subjective fever of 101 and 102 at home -Tylenol for fever -imaging negative for acute process -UA negative for infectious process -follow blood cultures -flu/covid negative, WBC 11, neutrophils 73.3 -Rocephin started in the ED, continue empirically on floor Electrolyte imbalance -Potassium 2.8 -Sodium 133 -Magnesium and phos pending -Gentle IVF, potassium given in the ED History of PE -Chronic xarelto Diabetes mellitus- IDDM -uses ozempic at home -accucheck with SSI -Serum glucose 168 History of HTN History of chronic pain/arthritis History asthma History breast cancer -continue home medications -supportive care Dvt PPX xarelto Full code LOS 2 days Discharge Plan: Home Plan to discharge in: 24 Hours - Advance Directives Does patient have a Living Will: No Does patient have a Durable POA for Healthcare: Yes
[2023-12-14] MEDS ORDERED: ACETAMINOPHEN 500 MG TAB ONE (15:28)
[2023-12-14] MEDS: ACETAMINOPHEN 500 MG TAB PO PRN (15:28)
[2023-12-14] MEDS: INSULIN REGULAR (HUMAN) 100 UNIT/ML SQ SCH (16:30)
[2023-12-14] MEDS ORDERED: HOME MED 1 EA UNK (Fluticasone Furoate [Arnuity Ellipta] 100 MCG Blst.W.Dev) IH PRN (19:14)
[2023-12-14 19:34] LABS: Phosphorus 2.2 mg/dL (2.5-4.9)
[2023-12-14 19:35] LABS: Thyroid Stimulating Hormone 1.17 uIU/mL (0.358-3.740)
[2023-12-14 19:37] LABS: Magnesium 2.1 mg/dL (1.6-2.4)
[2023-12-14] MEDS: RIVAROXABAN 10 MG TABLET PO SCH (20:23)
[2023-12-14] MEDS: METOPROLOL TAR 25 MG TAB PO SCH (20:23)
[2023-12-14] MEDS: MONTELUKAST 10 MG TAB PO SCH (20:24)
[2023-12-15 05:03] LABS: Absolute Basophils 0.1 K/uL (0-0.5); Absolute Lymphocytes (CBC) 1.6 K/uL (0.7-4.9); Absolute Monocytes 1.1 K/uL (0.1-1.3); Absolute Neutrophil 6.8 K/uL (1.8-8.0); Basophils % 0.5 % (0-1.3); Eosinophils % 0.4 % (0-4.4); Hematocrit 33.9 % (36.0-45.0); Hemoglobin 10.9 g/dL (12.0-15.0); Lymphocytes % 16.6 % (15.3-44.8); MCH 27.9 pg (27.0-35.0); MCHC 32.1 g/dL (32.0-36.0); MPV 9.1 fL (7.6-11.3); Monocytes % 11.8 % (3.3-12.3); Neutrophils % 70.7 % (41.7-73.7); Platelets 231 thou/uL (152-406); Red Cell Distribution Width 13.9 % (12.1-15.2)
[2023-12-15 05:15] LABS: Anion Gap 9.1 mEq/L (5.0-15.0); Magnesium 2.1 mg/dL (1.6-2.4); Phosphorus 2.5 mg/dL (2.5-4.9); Potassium 3.1 mEq/L (3.5-5.1)
[2023-12-15] MEDS: LOSARTAN/HCTZ 50-12.5 PO SCH (09:44)
[2023-12-15] MEDS: FAMOTIDINE 20 MG TAB PO SCH (09:44)
[2023-12-15] MEDS: POTASSIUM CL SA 10 MEQ TAB PO ONE (09:44)
[2023-12-15] MEDS: POTASS/SODIUM PHOSPHATE 1 PKT POWD.PACK PO SCH (09:44)
[2023-12-15] MEDS: CEFTRIAXONE 1,000 MG in NA CHLORIDE 0.9% 50 ML IVPB SCH (09:45)
[2023-12-15] MEDS: CYCLOBENZAPRINE 10 MG TAB PO PRN (13:23)
--- NOTE | 2023-12-15 14:10 | EKG ---
Test Date: 2023-12-14 Test Time: 08:56:49 Locomotive Supervisor: GODFREY MEASUREMENT RESULTS: Intervals: Rate: 101 CO: 176 QRSD: 100 QT: 372 QTc: 482 [place]: P: 62 CO: 176 QRS: 16 T: 36 INTERPRETIVE STATEMENTS: Sinus tachycardia Otherwise normal ECG Compared to ECG 04/10/2023 10:54:47 Sinus rhythm no longer present Electronically Signed On 12-15-23 14:06:03 CDT by Don Tavares
--- NOTE | 2023-12-15 14:17 | P.PN ---
Date of Service: 12/15/23 Subjective Feeling well but continues to have left sided pain afebrile OVN ROS 10 point ROS as noted above, otherwise negative Physical Exam General: Alert and Oriented x3, NAD, febrile HEENT: Atraumatic, Normocephalic, PERRLA Neck: Supple, 2+ carotid pulse no bruit Respiratory: Clear to auscultation bilaterally, Normal air movement, on RA Cardiovascular: Normal pulses, tachycardic, Normal S1 S2 Capillary refill: <2 Seconds Gastrointestinal: Normal bowel sounds, Soft and benign Musculoskeletal: No clubbing Integumentary: No rashes Neurological: Normal speech, Other (weakness) Vitals Reviewed Problem list Fever of unknown source Tachycardic Myalgia Electrolyte imbalance History of PE Diabetes mellitus- IDDM History of HTN History of chronic pain/arthritis History asthma History breast cancer Assessment and Plan Fever of unknown source Tachycardic Myalgia -subjective fever of 101 and 102 at home, currently afebrile OVN -Tylenol for fever -imaging negative for acute process -UA negative for infectious process -follow blood cultures- NGTD -intiial results flu/covid negative, WBC 11, neutrophils 73.3 -Rocephin started in the ED, -continue empirically on floor -Flexeril started 12/14 -PT consulted -procalcitonin 0.25 Electrolyte imbalance -Potassium 2.8/3.1 -Sodium 133/138 -Magnesium and phos pending -Gentle IVF, potassium given in the ED History of PE -Chronic xarelto Diabetes mellitus- IDDM -uses ozempic at home -accucheck with SSI -Serum glucose 168/154 History of HTN History of chronic pain/arthritis History asthma History breast cancer -continue home medications -supportive care Dvt PPX xarelto Full code LOS 2 days Discharge Plan: Home Plan to discharge in: 24 Hours <Juliette Hathaway - Last Filed: 12/15/23 13:51> Patient seen and examined. Plan of care discussed with Ms. Hathaway. Myalgia-unknown etiology. No focus of infection. Differential diagnosis: Acute viral infection Endocrinopathy Influenza screen is negative. CK level is normal Check aldolase level, Lyme titer Normal TSH, check a.m. cortisol level. Empiric IV Rocephin Analgesics as needed Continue PT <carlyle khan - Last Filed: 12/15/23 17:28>
[2023-12-15] MEDS: ACETAMINOPHEN 325 MG TABLET PO PRN (20:38)
[2023-12-16 07:10] LABS: Absolute Eosinophils 0.1 K/uL (0-0.5); Absolute Lymphocytes (CBC) 1.4 K/uL (0.7-4.9); Absolute Monocytes 0.8 K/uL (0.1-1.3); Basophils % 0.4 % (0-1.3); Eosinophils % 1.5 % (0-4.4); Hemoglobin 10.6 g/dL (12.0-15.0); Lymphocytes % 19.4 % (15.3-44.8); MCH 28.7 pg (27.0-35.0); MCHC 33.2 g/dL (32.0-36.0); MCV 86.5 fL (80-100); MPV 8.9 fL (7.6-11.3); Monocytes % 11.1 % (3.3-12.3); Neutrophils % 67.6 % (41.7-73.7); Platelets 263 thou/uL (152-406); Red Cell Distribution Width 13.9 % (12.1-15.2)
[2023-12-16 08:05] LABS: Anion Gap 8.7 mEq/L (5.0-15.0); Phosphorus 3.3 mg/dL (2.5-4.9); Potassium 3.7 mEq/L (3.5-5.1)
[2023-12-16] MEDS: POTASSIUM CL SA 10 MEQ TAB PO ONE (10:40)
--- NOTE | 2023-12-16 15:09 | P.PN ---
Date of Service: 12/16/23 Subjective Feeling weak, she struggled standing up to use the BSC continues to be afebrile Micro with NGTD Lyme disease screen pending ROS 10 point ROS as noted above, otherwise negative Physical Exam General: AAO x3, NAD, Conversing HEENT: Atraumatic, Normocephalic, PERRLA Neck: Supple, 2+ carotid pulse no bruit Respiratory: Bilaterally clear breath sounds, Symmetrical chest wall movement, on RA Cardiovascular: Normal pulses, NSR, Normal S1 S2 Capillary refill: <2 Seconds Gastrointestinal: Normal bowel sounds, Soft and benign, obese Musculoskeletal: No clubbing Integumentary: No rashes Neurological: Normal speech, Other (weakness) Vitals Reviewed Problem list Fever of unknown source Tachycardic Myalgia Electrolyte imbalance History of PE Diabetes mellitus- IDDM History of HTN History of chronic pain/arthritis History asthma History breast cancer Assessment and Plan Fever of unknown source Tachycardic Myalgia -subjective fever of 101 and 102 at home, currently afebrile OVN -Tylenol for fever -imaging negative for acute process -UA negative for infectious process -follow blood cultures- NGTD -intial results flu/covid negative, WBC 11, neutrophils 73.3 -Rocephin started in the ED -continue empirically on floor -Flexeril started 12/14 -continue to work with PT -procalcitonin 0.25 -Lyme disease screen pending -aldolase pending Electrolyte imbalance -Potassium 2.8/3.1/3.7 -Sodium 133/138/140 -Magnesium and phos pending -Gentle IVF History of PE -Chronic xarelto Diabetes mellitus- IDDM -uses ozempic at home -accucheck with SSI -Serum glucose 168/154/164 History of HTN History of chronic pain/arthritis History asthma History breast cancer -continue home medications -supportive care Dvt PPX xarelto Full code LOS 2 days Discharge Plan: Home Plan to discharge in: 24 Hours
[2023-12-17 06:06] LABS: Absolute Basophils 0.1 K/uL (0-0.5); Absolute Eosinophils 0.2 K/uL (0-0.5); Absolute Lymphocytes (CBC) 1.8 K/uL (0.7-4.9); Absolute Monocytes 0.8 K/uL (0.1-1.3); Absolute Neutrophil 4.7 K/uL (1.8-8.0); Basophils % 0.8 % (0-1.3); Hematocrit 33.1 % (36.0-45.0); Hemoglobin 10.9 g/dL (12.0-15.0); Lymphocytes % 23.7 % (15.3-44.8); MCH 28.7 pg (27.0-35.0); MCHC 33.1 g/dL (32.0-36.0); MCV 86.8 fL (80-100); MPV 8.2 fL (7.6-11.3); Neutrophils % 61.5 % (41.7-73.7); Nucleated Red Blood Cells % 0.1 % (0-0); Platelets 286 thou/uL (152-406); RBC Red Blood Cell Count 3.81 M/uL (3.86-4.86); Red Cell Distribution Width 13.9 % (12.1-15.2)
[2023-12-17 06:16] LABS: Anion Gap 6.7 mEq/L (5.0-15.0); Magnesium 1.9 mg/dL (1.6-2.4); Potassium 3.7 mEq/L (3.5-5.1)
[2023-12-17] MEDS: POTASSIUM CL SA 10 MEQ TAB PO ONE (08:50)
--- NOTE | 2023-12-17 13:53 | P.PN ---
Date of Service: 12/17/23 Subjective Feeling the same as yesterday complaining of a stinging feeling to her lower right leg Plan to sit in the chair today. ROS 10 point ROS as noted above, otherwise negative Physical Exam General: Alert and oriented x3, NAD, afebrile HEENT: Atraumatic, Normocephalic, PERRLA Neck: Supple, 2+ carotid pulse no bruit Respiratory: Bilaterally clear breath sounds, nonlabored breathing, on RA Cardiovascular: Normal pulses, regular rate and rhythm, Normal S1 S2 Capillary refill: <2 Seconds Gastrointestinal: Soft on palpation, Normal activebowel sounds,obese Musculoskeletal: No clubbing Integumentary: No rashes Neurological: Normal speech, Other (weakness) Vitals Reviewed Problem list Fever of unknown source Tachycardic Myalgia Electrolyte imbalance History of PE Diabetes mellitus- IDDM History of HTN History of chronic pain/arthritis History asthma History breast cancer Assessment and Plan Fever of unknown source Tachycardic Myalgia -subjective fever of 101 and 102 at home, currently afebrile during this admission -Tylenol for fever -imaging negative for acute findings -UA negative for infectious process -follow blood cultures- NGTD -intial results flu/covid negative, WBC 11, neutrophils 73.3 -Rocephin started in the ED -continue empirically on floor -Flexeril started 12/14 -continue to work with PT -procalcitonin 0.25 -Lyme disease screen pending -aldolase pending -Cortisol 11.76 Electrolyte imbalance-resolved -Potassium 2.8/3.1/3.7/3.7 -Sodium 133/138/140/138 -Magnesium and phos pending -Gentle IVF History of PE -Chronic xarelto Diabetes mellitus- IDDM -uses ozempic at home -accucheck with SSI -Serum glucose 168/154/164/180 History of HTN History of chronic pain/arthritis History asthma History breast cancer -continue home medications -supportive care Dvt PPX xarelto Full code LOS 2 days Discharge Plan: Home Plan to discharge in: 24 Hours
[2023-12-17] MEDS: TRAZODONE 50 MG TABLET PO SCH (21:01)
[2023-12-18 05:47] LABS: Absolute Eosinophils 0.3 K/uL (0-0.5); Absolute Lymphocytes (CBC) 1.9 K/uL (0.7-4.9); Absolute Monocytes 0.6 K/uL (0.1-1.3); Absolute Neutrophil 3.2 K/uL (1.8-8.0); Basophils % 0.8 % (0-1.3); Eosinophils % 4.4 % (0-4.4); Hematocrit 32.6 % (36.0-45.0); Hemoglobin 10.8 g/dL (12.0-15.0); Lymphocytes % 31.8 % (15.3-44.8); MCH 28.6 pg (27.0-35.0); MCV 86.7 fL (80-100); Monocytes % 10.6 % (3.3-12.3); Neutrophils % 52.4 % (41.7-73.7); Nucleated Red Blood Cells % 0.1 % (0-0); Platelets 316 thou/uL (152-406); RBC Red Blood Cell Count 3.76 M/uL (3.86-4.86); Red Cell Distribution Width 13.8 % (12.1-15.2)
[2023-12-18 06:00] LABS: Magnesium 2.2 mg/dL (1.6-2.4); Phosphorus 4.1 mg/dL (2.5-4.9)
--- NOTE | 2023-12-18 14:21 | P.PN ---
Date of Service: 12/18/23 Subjective Feeling the same today, excited she was able to transfer to the bedside chair and watched the whole [employer] game no new changes ROS 10 point ROS as noted above, otherwise negative Physical Exam General: AAOx3, NAD, afebrile HEENT: Atraumatic, Normocephalic, PERRLA Neck: Supple, 2+ carotid pulse no bruit Respiratory: Bilaterally clear breath sounds, symmetrical chest wall movement, on RA Cardiovascular: Normal pulses, RRR, Normal S1 S2 Capillary refill: <2 Seconds Gastrointestinal: Soft on palpation, Normal active, bowel sounds, obese Musculoskeletal: No clubbing Integumentary: No rashes Neurological: Normal speech, Other (weakness) Vitals Reviewed Problem list Fever of unknown source Tachycardic Myalgia Electrolyte imbalance History of PE Diabetes mellitus- IDDM History of HTN History of chronic pain/arthritis History asthma History breast cancer Assessment and Plan Fever of unknown source Tachycardic Myalgia with elevated CRP of unknown etiology -subjective fever of 101 and 102 at home, currently afebrile during this admission -Tylenol for fever -imaging negative for acute findings -UA negative for infectious process -follow blood cultures- NGTD -intial results flu/covid negative, WBC 11, neutrophils 73.3 -Rocephin started in the ED -continue empirically on floor -Flexeril started 12/14 -continue to work with PT -CRP 248/87.3- improved -procalcitonin 0.25 -Lyme disease screen pending -aldolase pending -Cortisol 11.76 Electrolyte imbalance-resolved -Potassium 2.8/3.1/3.7/3.7/4.0 -Sodium 133/138/140/138/139 -Magnesium 2.2 -phos 4.1 -Gentle IVF History of PE -Chronic xarelto Diabetes mellitus- IDDM -uses ozempic at home -accucheck with SSI -Serum glucose 168/154/164/180/151 History of HTN History of chronic pain/arthritis History asthma History breast cancer -continue home medications -supportive care Dvt PPX xarelto Full code LOS 2 days Discharge Plan: Home Plan to discharge in: 24 Hours <Juliette Hathaway - Last Filed: 12/18/23 14:21> Patient seen and examined. Plan of care discussed with Ms. Harvery. Patient is gradually improving, functional status is improving gradually. She is complaining pain in her right shoulder and behind her right knee. C-reactive protein level improved though still high. Normal CK level Impression: Myalgia-unknown etiology, viral syndrome implicated. Generalized weakness Plan: Continue supportive measures Empiric antibiotics Continue PT Graded increasing activity as tolerated. <carlyle khan - Last Filed: 12/18/23 18:22>
[2023-12-19 04:56] LABS: Absolute Basophils 0.1 K/uL (0-0.5); Absolute Eosinophils 0.3 K/uL (0-0.5); Absolute Lymphocytes (CBC) 1.6 K/uL (0.7-4.9); Absolute Monocytes 0.8 K/uL (0.1-1.3); Absolute Neutrophil 4.9 K/uL (1.8-8.0); Basophils % 0.7 % (0-1.3); Eosinophils % 4.5 % (0-4.4); Hematocrit 33.5 % (36.0-45.0); Lymphocytes % 20.7 % (15.3-44.8); MCH 28.5 pg (27.0-35.0); MCHC 32.8 g/dL (32.0-36.0); MCV 86.9 fL (80-100); MPV 8.1 fL (7.6-11.3); Monocytes % 10.3 % (3.3-12.3); Neutrophils % 63.8 % (41.7-73.7); Nucleated Red Blood Cells % 0.1 % (0-0); Platelets 345 thou/uL (152-406); RBC Red Blood Cell Count 3.86 M/uL (3.86-4.86)
[2023-12-19 05:11] LABS: Anion Gap 9.9 mEq/L (5.0-15.0); Magnesium 2.1 mg/dL (1.6-2.4); Phosphorus 3.6 mg/dL (2.5-4.9); Potassium 3.9 mEq/L (3.5-5.1)
--- NOTE | 2023-12-19 14:25 | P.PN ---
Date of Service: 12/19/23 Subjective: Still with severe weakness Difficulty with transfers yesterday Pain better controlled, hoping to do better today with PT ROS: 10 point ROS as noted above, otherwise negative Physical exam GEN: Alert, oriented, NAD, obese HEENT: Normal conjunctiva, sclera anicteric CV: Regular rate and rhythm, no edema Pulm: Nonlabored respirations on room air ABD: Soft, nontender, nondistended MSK: No joint tenderness Integumentary: No rashes Neuro: Normal speech, normal affect, general weakness, worse in lower extremities Vitals reviewed Problem list Myalgia Debility, profound weakness Reported fever of unknown origin-resolved Tachycardic Electrolyte imbalance History of PE Diabetes mellitus- IDDM History of HTN History of chronic pain/arthritis History asthma History breast cancer Plan Myalgia Debility, profound weakness Tachycardic Myalgia with elevated CRP of unknown etiology Reported fever of unknown origin-resolved -Continue working with PT, very weak -Typically ambulates with walker at home, had a fall -Now having difficulty transferring/walking with walker -subjective fever of 101 and 102 at home, currently afebrile during this admission -imaging negative for acute findings -UA negative for infectious process -follow blood cultures- NGTD -intial results flu/covid negative -Rocephin started in the ED, continue empirically on floor -Flexeril started 12/14 -continue to work with PT -CRP 248/87.3- improved -procalcitonin 0.25 -Lyme disease screen pending -aldolase pending -Cortisol 11.76 Electrolyte imbalance-resolved -Potassium 2.8/3.1/3.7/3.7/4.0 -Sodium 133/138/140/138/139 -Magnesium 2.2 -phos 4.1 -Gentle IVF History of PE -Chronic xarelto Diabetes mellitus- IDDM -uses ozempic at home -accucheck with SSI -Serum glucose 168/154/164/180/151 History of HTN History of chronic pain/arthritis History asthma History breast cancer -continue home medications -supportive care Dvt PPX xarelto Full code LOS 2 days Discharge Plan: Home
[2023-12-19] MEDS: POTASSIUM CL SA 10 MEQ TAB PO ONE (16:37)
[2023-12-19 16:42] VITALS: BMI 48.9
--- NOTE | 2023-12-20 14:07 | P.PN ---
Date of Service: 12/20/23 Subjective: Still with severe weakness Difficulty with transfers/ambulation ROS: 10 point ROS as noted above, otherwise negative Physical exam GEN: Alert, oriented, NAD, obese HEENT: Normal conjunctiva, sclera anicteric CV: Regular rate and rhythm, no edema Pulm: Nonlabored respirations on room air ABD: Soft, nontender, nondistended MSK: No joint tenderness Integumentary: No rashes Neuro: Normal speech, normal affect, general weakness, worse in lower extremities Vitals reviewed Problem list Myalgia Debility, profound weakness Reported fever of unknown origin-resolved Tachycardic Electrolyte imbalance History of PE Diabetes mellitus- IDDM History of HTN History of chronic pain/arthritis History asthma History breast cancer Plan Myalgia Debility, profound weakness coccygeal fracture Tachycardic Myalgia with elevated CRP of unknown etiology Reported fever of unknown origin-resolved -Continue working with PT, very weak -Typically ambulates with walker at home, had a fall -Now having difficulty transferring/walking with walker -subjective fever of 101 and 102 at home, currently afebrile during this admission -imaging negative for acute findings -UA negative for infectious process -follow blood cultures- NGTD -intial results flu/covid negative -Rocephin started in the ED, continue empirically on floor, will stop after today's dose 12/19 -Flexeril started 12/14 -continue to work with PT -CRP 248/87.3- improved -procalcitonin 0.25 -Lyme disease screen pending -aldolase pending -Cortisol 11.76 -Pending disposition, pending appeal for inpatient rehab Electrolyte imbalance-resolved History of PE -Chronic xarelto Diabetes mellitus- IDDM -uses ozempic at home -accucheck with SSI -Serum glucose 168/154/164/180/151 History of HTN History of chronic pain/arthritis History asthma History breast cancer -continue home medications -supportive care Dvt PPX xarelto Full code LOS 2 days Discharge Plan: Home
[2023-12-20] MEDS ORDERED: MELATONIN 5 MG TABLET PO PRN (14:11)
[2023-12-20 16:30] LABS: LYME AB SCREEN <0.90 Index (<0.90)
[2023-12-20 22:34] VITALS: O2SAT 95
[2023-12-21 05:31] LABS: Anion Gap 9.9 mEq/L (5.0-15.0); Potassium 3.9 mEq/L (3.5-5.1)
[2023-12-21] MEDS: POTASSIUM CL SA 10 MEQ TAB PO ONE (09:55)
--- NOTE | 2023-12-21 10:13 | P.PN ---
Date of Service: 12/21/23 Subjective: Still with severe weakness Difficulty with transfers/ambulation Pending appeal inpatient rehab In better spirits today ROS: 10 point ROS as noted above, otherwise negative Physical exam GEN: Alert, oriented, NAD, obese HEENT: Normal conjunctiva, sclera anicteric CV: Regular rate and rhythm, no edema Pulm: Nonlabored respirations on room air ABD: Soft, nontender, nondistended MSK: No joint tenderness Integumentary: No rashes Neuro: Normal speech, normal affect, general weakness, worse in lower extremities Vitals reviewed Problem list Myalgia Debility, profound weakness Reported fever of unknown origin-resolved Tachycardic Electrolyte imbalance History of PE Diabetes mellitus- IDDM History of HTN History of chronic pain/arthritis History asthma History breast cancer Plan Myalgia Debility, profound weakness coccygeal fracture Tachycardic Myalgia with elevated CRP of unknown etiology Reported fever of unknown origin-resolved -Continue working with PT, very weak -Typically ambulates with walker at home, had a fall -Now having difficulty transferring/walking with walker -subjective fever of 101 and 102 at home, currently afebrile during this admission -imaging negative for acute findings -UA negative for infectious process -follow blood cultures- NGTD -intial results flu/covid negative -Rocephin started in the ED, continue empirically on floor, will stop after today's dose 12/19 -Flexeril started 12/14 -continue to work with PT -CRP 248/87.3- improved -procalcitonin 0.25 -Lyme disease negative -aldolase pending -Cortisol 11.76 -Pending disposition, pending appeal for inpatient rehab Electrolyte imbalance-resolved History of PE -Chronic xarelto Diabetes mellitus- IDDM -uses ozempic at home -accucheck with SSI -Serum glucose 168/154/164/180/151 History of HTN History of chronic pain/arthritis History asthma History breast cancer -continue home medications -supportive care Dvt PPX xarelto Full code LOS 2 days Discharge Plan: Home
[2023-12-21 13:02] LABS: Aldolase 5.5 U/L (<=8.1)
[2023-12-22 05:38] LABS: Anion Gap 7.6 mEq/L (5.0-15.0); Potassium 3.6 mEq/L (3.5-5.1)
[2023-12-22] MEDS: POTASSIUM CL SA 10 MEQ TAB PO ONE (08:35)
--- NOTE | 2023-12-22 11:50 | P.PN ---
Date of Service: 12/22/23 Subjective: Still with severe weakness Difficulty with transfers/ambulation Pending appeal inpatient rehab Started SNF auth today as well In better spirits today ROS: 10 point ROS as noted above, otherwise negative Physical exam GEN: Alert, oriented, NAD, obese HEENT: Normal conjunctiva, sclera anicteric CV: Regular rate and rhythm, no edema Pulm: Nonlabored respirations on room air ABD: Soft, nontender, nondistended MSK: No joint tenderness Integumentary: No rashes Neuro: Normal speech, normal affect, general weakness, worse in lower extremities Vitals reviewed Problem list Myalgia Debility, profound weakness Reported fever of unknown origin-resolved Tachycardic Electrolyte imbalance History of PE Diabetes mellitus- IDDM History of HTN History of chronic pain/arthritis History asthma History breast cancer Plan Myalgia Debility, profound weakness coccygeal fracture Tachycardic Myalgia with elevated CRP of unknown etiology Reported fever of unknown origin-resolved -Continue working with PT, very weak -Typically ambulates with walker at home, had a fall -Now having difficulty transferring/walking with walker -subjective fever of 101 and 102 at home, currently afebrile during this admission -imaging negative for acute findings -UA negative for infectious process -follow blood cultures- NGTD -intial results flu/covid negative -Rocephin started in the ED, continue empirically on floor, stopped 12/19 -Flexeril started 12/14 -continue to work with PT -CRP 248/87.3- improved -procalcitonin 0.25 -Lyme disease negative -aldolase pending -Cortisol 11.76 -Pending disposition, pending appeal for inpatient rehab Electrolyte imbalance-resolved History of PE -Chronic xarelto Diabetes mellitus- IDDM -uses ozempic at home -accucheck with SSI History of HTN History of chronic pain/arthritis History asthma History breast cancer -continue home medications -supportive care Dvt PPX xarelto Full code LOS 1 day Discharge Plan: Home
--- NOTE | 2023-12-23 07:01 | P.DS ---
Admission Date: 12/14/23 Discharge Date: 12/23/23 Disposition: TRANSFER TO SNF - REHAB Discharge Condition: GOOD Reason for Admission: Fever of unknown source Brief History of Present Illness: Alvina Vail is a 78 year old female with Pmhx arthritis, cancer, hyperlipidemia, hypertension, pulmonary embolism, diabetes mellitus who presented to the ED with chief complaint of a fever as high as 102 F associated with myalgia and generalized weakness with onset yesterday. She reports having a similar episode concerning the myalgia a few years ago. She reports being on a statin medication and on letrozole, both can cause muscle pain. Ultimately, she had fallen on Monday and was imaged in the ED on Monday with no acute findings. Initial vitals: BP 127 / 73; Pulse 100; Resp 19 S; Temp 99.6(O); Pulse Ox 93% on R/A Laboratory evaluation WBC 11, H&H 11.5/35.1, sodium 133, potassium 2.8, serum glucose 168 Alvina will be admitted to hospitalist service for further evaluation and treatment. Hospital Course: Problem list Myalgia Debility, profound weakness Reported fever of unknown origin-resolved Tachycardic Electrolyte imbalance History of PE Diabetes mellitus- IDDM History of HTN History of chronic pain/arthritis History asthma History breast cancer Patient was admitted to the hospital for reported fever, weakness. Blood cultures were obtained and had no growth in 5 days, additional testing including Lyme disease screen was performed and negative, COVID and influenza are negative, no signs of urinary tract infection, white blood cell count remained within normal limits and patient was afebrile throughout entire hospitalization. She was very weak, physical therapy evaluated her and she was able to do standing marches, needed help with transfers and was significantly weak, not able to go home without further PT. Initially tried for inpatient rehab but was denied even after appeal, she has been accepted for SNF at this time. Stable for discharge to [facility] for further physical therapy. Please continue medications as previously prescribed. Vital Signs/Physical Exam: Temp Pulse Resp BP Pulse Ox 97.2 F 80 18 144/72 H 95 12/23/23 04:00 12/23/23 04:00 12/23/23 04:00 12/23/23 04:00 12/23/23 04:00 General: Alert, In no apparent distress, Oriented x3 HEENT: Atraumatic, PERRLA Neck: Supple, JVD not distended Respiratory: Clear to auscultation bilaterally, Normal air movement Cardiovascular: Regular rate/rhythm, Normal S1 S2 Gastrointestinal: Normal bowel sounds, No tenderness Musculoskeletal: No tenderness Integumentary: No rashes Neurological: Normal speech, Normal tone, Normal affect Laboratory Data at Discharge: WBC 7.60 thou/uL (4.3-10.9) 12/19/23 04:26 Hgb 11.0 g/dL (12.0-15.0) L 12/19/23 04:26 Hct 33.5 % (36.0-45.0) L 12/19/23 04:26 Plt Count 345 thou/uL (152-406) 12/19/23 04:26 PT 14.6 SECONDS (9.4-12.5) H 12/14/23 09:10 INR 1.31 12/14/23 09:10 APTT 29.6 SECONDS (24.3-36.9) 12/14/23 09:10 Sodium 137 mEq/L (136-145) 12/22/23 05:03 Potassium 3.6 mEq/L (3.5-5.1) 12/22/23 05:03 BUN 16 mg/dL (7-18) 12/22/23 05:03 Creatinine 0.54 mg/dL (0.55-1.02) L 12/22/23 05:03 Glucose 168 mg/dL (74-106) H 12/22/23 05:03 Phosphorus 3.6 mg/dL (2.5-4.9) 12/19/23 04:26 Magnesium 2.1 mg/dL (1.6-2.4) 12/19/23 04:26 Total Bilirubin 1.2 mg/dL (0.2-1.0) H 12/14/23 09:10 AST 13 U/L (15-37) L 12/14/23 09:10 ALT 26 U/L (13-56) 12/14/23 09:10 Alkaline Phosphatase 120 U/L (45-117) H 12/14/23 09:10 Triglycerides 69 mg/dL (<150) 12/15/23 04:21 Cholesterol 145 mg/dL (<200) 12/15/23 04:21 HDL Cholesterol 55 mg/dL (40-60) 12/15/23 04:21 Cholesterol/HDL Ratio 2.64 12/15/23 04:21 Home Medications: Letrozole [Femara*] 2.5 mg PO BEDTIME 01/06/19 Metoprolol Tartrate [Lopressor*] 25 mg PO BID 01/06/19 Montelukast Sodium [Singulair] 10 mg PO BEDTIME 01/06/19 Rivaroxaban [Xarelto*] 10 mg PO BEDTIME 01/06/19 Turmeric/Turmeric Root Extract [Turmeric 500 mg Capsule] 1,000 mg PO BID 01/06/19 Ubidecarenone [Co Q-10] 100 mg PO BEDTIME 01/06/19 Acetaminophen [Tylenol Arthritis] 2 tab PO BID 04/10/23 Cholecalciferol (Vitamin D3) [Vitamin D3] 50 mcg PO DAILY 04/10/23 Cranberry Conc/C/Bacill Coag [Cranberry Tablet] 1 each PO DAILY 04/10/23 Cyanocobalamin (Vitamin B-12) [Vitamin B12] 2,500 mcg PO DAILY 04/10/23 Famotidine [Pepcid] 20 mg PO SEECOM 04/10/23 Fluticasone Furoate [Arnuity Ellipta] 100 mcg IH DAILYPRN PRN 04/10/23 Lactobacillus Rhamnosus GG [Culturelle] 1 each PO BEDTIME 04/10/23 Losartan/Hydrochlorothiazide [Losartan-Hctz 100-25 mg Tab] 1 each PO DAILY 04/10/23 Multivit-Min/FA/Lycopen/Lutein [Centrum Silver Tablet] 1 each PO DAILY 04/10/23 Rosuvastatin [Crestor*] 5 mg PO BEDTIME 04/10/23 Semaglutide [Ozempic] 0.5 mg SQ EVERY 7TH DAY 04/10/23 Physician Discharge Instructions: Patient was admitted to the hospital for reported fever, weakness. Blood cultures were obtained and had no growth in 5 days, additional testing including Lyme disease screen was performed and negative, COVID and influenza are negative, no signs of urinary tract infection, white blood cell count remained within normal limits and patient was afebrile throughout entire hospitalization. She was very weak, physical therapy evaluated her and she was able to do standing marches, needed help with transfers and was significantly weak, not able to go home without further PT. Initially tried for inpatient rehab but was denied even after appeal, she has been accepted for SNF at this time. Stable for discharge to [facility] for further physical therapy. Please continue medications as previously prescribed. Followup: Margaret Mcnamara DO, DO [Primary Care Provider] - Time spent managing pt's care (in minutes): 30
[2023-12-23 08:07] LABS: Anion Gap 6.7 mEq/L (5.0-15.0); Potassium 3.7 mEq/L (3.5-5.1)
[2023-12-23] MEDS: POTASSIUM CL SA 10 MEQ TAB PO ONE (09:02)
[2023-12-23 09:51] VITALS: BP 189/79; TEMP 97.6
== END 2023-12-23 11:27 | DRG 556 ==
LOC: ER 08:16 → 2ND 13:26
PROVIDERS: ADMIT Internal Medicine; ATTEND Hospitalist
DX: M79.10 Myalgia, unspecified site (principal); S32.2XXA Fracture of coccyx, initial encounter for closed fracture; E87.1 Hypo-osmolality and hyponatremia; Z68.41 Body mass index [BMI] 40.0-44.9, adult; R50.9 Fever, unspecified; E66.9 Obesity, unspecified; E78.5 Hyperlipidemia, unspecified; I10 Essential (primary) hypertension; E11.9 Type 2 diabetes mellitus without complications; M25.561 Pain in right knee; M25.511 Pain in right shoulder; M19.90 Unspecified osteoarthritis, unspecified site; J45.909 Unspecified asthma, uncomplicated; R00.0 Tachycardia, unspecified; Z85.3 Personal history of malignant neoplasm of breast; Z88.1 Allergy status to other antibiotic agents; Z98.51 Tubal ligation status; Z11.52 Encounter for screening for COVID-19; Z79.01 Long term (current) use of anticoagulants; Z90.12 Acquired absence of left breast and nipple; Z90.49 Acquired absence of other specified parts of digestive tract; Z86.711 Personal history of pulmonary embolism; Z79.899 Other long term (current) drug therapy; Z90.710 Acquired absence of both cervix and uterus
CPT/HCPCS: 36415; 51702; 71045; 72100; 72192; 72220; 74177; 76705; 80048; 80053; 80061; 81001; 82085; 82533; 82550; 82947; 83605; 83735; 84100; 84145; 84439; 84443; 85025; 85610; 85730; 86140; 86618; 87040; 87804; 87811; 93005; 94010; 97110; 97161; 97165; 97530; 99283; 99285; J0696; J3480; J7040; Q9967